=== PATIENT | male | born 1950 | race Caucasian/White ===

== ENCOUNTER 2018-08-13 08:07 | Outpatient (CLI) | payer BC, MEDICARE ==
--- NOTE | 2018-08-13 08:31 | RAD ---
EXAM: Chest Two Views 08/13/2018 8:28 AM HISTORY: Dyspnea COMPARISON: June 02, 2016 FINDINGS: Heart: Normal in size and contour. Pulmonary vessels: Normal. Costophrenic angles: Clear. Lungs: No confluent pneumonia, overt edema, pleural effusion, or other acute process. Pneumothorax: None. Osseous structures:Intact. There is scattered degenerative and osteoarthritic change present. There i s partial visualization of instrumentation involving the proximal right humerus. Additional findings: None. IMPRESSION: No significant acute intrathoracic disease.
== END 2018-08-13 08:08 | disposition home or self-care (01) ==
LOC: RAD 08:07
PROVIDERS: ATTEND Internal Medicine Critical Care Medicine
DX: R06.00 Dyspnea, unspecified (principal)
CPT/HCPCS: 71046

== ENCOUNTER 2018-09-07 10:17 | Outpatient (CLI) | payer BC, MEDICARE ==
--- NOTE | 2018-09-07 11:23 | RAD ---
EXAM: Two views chest PROVIDED CLINICAL HISTORY: Acute pulmonary embolism. DVT. Chest x-ray provided for correlation with ventilation/perfusion study. COMPARISON: 06/02/2016 FINDINGS: Cardiac silhouette and pulmonary vasculature are within normal limits. The lungs are clear. Degenera tive changes are again seen in the thoracic spine with calcification of the anterior longitudinal ligament. There is partial visualization of postsurgical changes proximal right humerus. [place] screw again overlies the left humeral head. Vascular calcifications are seen in the thoracic aorta. IMPRESSION: No acute cardiopulmonary process.
--- NOTE | 2018-09-07 12:06 | NM ---
EXAM: NM Lung Vent Perf Imaging PROVIDED CLINICAL HISTORY: Acute embolism and thrombus unspecified deep vein unspecified lower extremity. COMPARISON: Chest x-ray also obtained on 09/07/2018. FINDINGS: There is a small subsegmental ventilation defect seen at the left lung base. Normal uptake of radiotr acer is otherwise seen throughout the lungs on the ventilation portion of the study with mild retention of contrast seen in the left lung on washout imaging suggesting an element of COPD. The perfusion study demonstrates a small subsegmental defect seen within the left lower lobe which co rresponds to the defect noted on the ventilation portion of the study compatible with a matched defect. No additional segmental or subsegmental perfusion defect is identified. No ventilation/perfus ion mismatch is seen. The chest x-ray also obtained on this date demonstrates that the lungs are clear. IMPRESION: 1. Low probability for pulmonary embolus. 2. Suggestion of element of mild COPD.
== END 2018-09-07 10:18 | disposition home or self-care (01) ==
LOC: NM 10:17
PROVIDERS: ATTEND Internal Medicine Critical Care Medicine
DX: I82.409 Acute embolism and thrombosis of unspecified deep veins of unspecified lower extremity (principal)
CPT/HCPCS: 71046; 78582; A9540; A9558

== ENCOUNTER 2018-09-21 16:00 | Outpatient (CLI) | payer BC, MEDICARE | END 2018-09-21 16:01 | disposition home or self-care (01) | LOC: SLEEPLAB 16:00 | PROVIDERS: ATTEND Internal Medicine Critical Care Medicine | DX: G47.33 Obstructive sleep apnea (adult) (pediatric) (principal); I25.10 Atherosclerotic heart disease of native coronary artery without angina pectoris; I10 Essential (primary) hypertension; I21.9 Acute myocardial infarction, unspecified; R06.83 Snoring | CPT/HCPCS: 95806 ==

== ENCOUNTER 2019-09-11 20:09 | Inpatient (IN) | payer BC, MEDICARE, OTHER ==
[2019-09-11] MEDS ORDERED: Nitroglycerin 2% Ointment 1 INCH/1 GM Packet ONE (20:56)
[2019-09-11] MEDS ORDERED: hydrALAZINE 20 MG/ML VIAL ONE (20:56)
--- NOTE | 2019-09-11 21:04 | RAD ---
PORTABLE CHEST: 09/11/19 HISTORY: Cough. Lungs appear clear. No infiltrate identified. Heart and mediastinum unremarkable. IMPRESSION: No acute infiltrate identified. POS: AGW
[2019-09-11 21:38] LABS: Hemoglobin 15.1 g/dL (14.0-18.0); Mean Corpuscular Hemoglobin 30.3 pg (27.0-31.0); Mean Corpuscular Volume 91.9 fL (78.0-98.0); Platelet Count 163 thou/uL (130-400); RBC Distribution Width 13.1 % (11.5-14.5); Red Blood Cell (RBC) Count 4.97 mill/uL (4.70-6.10)
[2019-09-11 21:53] LABS: Band 15 % (5-11); Eosinophils 3 % (0-10); Lymphocytes 18 % (21-51); MDiff Complete? YES; Monocytes 10 % (0-10); Neutrophil 54 % (42-75); Platelet Morphology Comment Appears Adequate
[2019-09-11 21:56] LABS: ALT (SGPT) 40 U/L (8-55); AST (SGOT) 34 U/L (5-34); Albumin 3.8 g/dL (3.4-4.8); Alkaline Phosphatase 91 U/L (40-110); Anion Gap 14 mmol/L (10-20); BUN (Urea Nitrogen) 12 mg/dL (8.4-25.7); Bilirubin, Total 0.4 mg/dL (0.2-1.2); Calc. Creatinine Clearance 0 mL/min (70-130); Calcium 9.3 mg/dL (7.8-10.44); Carbon Dioxide 21 mmol/L (23-31); Chloride 103 mmol/L (98-107); Estimated GFR-MDRD 67; Globulin 3.3 g/dL (2.4-3.5); Glucose 123 mg/dL (80-115); Potassium 4.1 mmol/L (3.5-5.1); Protein, Total 7.1 g/dL (5.8-8.1); Sodium 134 mmol/L (136-145)
[2019-09-11 22:09] LABS: CKMB 1.3 ng/mL (0-6.6)
[2019-09-11] MEDS ORDERED: Metoprolol Tartrate 5 MG/5 ML VIAL ONE (22:17)
[2019-09-11] MEDS ORDERED: Aspirin 325 MG TAB ONE (22:19)
--- NOTE | 2019-09-11 22:53 | CT ---
CT Brain WO Con: 09/11/2019 10:25 PM CLINICAL HISTORY: History of dizziness and fall. IMAGING TECHNIQUE: Multiple CT images were obtained of the brain without IV contrast. COMPARISON: CT the brain from [facility] dated April 30, 2018. FINDINGS: BRAIN: Evidence of acute infarct: None. Evidence of chronic ischemic change:Mild chronic small vessel white matter ischemic changes similar. Remote right caudate head lacunar infarct is stable. Evidence of intracranial hemorrhage: None. Evidence of midline shift: Third ventricle and septum pellucidum are midline. Ventricles: Normal. No hydrocephalus. SKULL: Intact. VISUALIZED PARANASAL SINUSES: Clear. MASTOID AIR CELLS: Clear. EXTRACRANIAL SOFT TISSUES: Normal. IMPRESSION: No acute intracranial abnormality.
[2019-09-11 23:44] LABS: Troponin I 0.062 ng/mL (< 0.028)
[2019-09-12 00:16] VITALS: BMI 37.5
[2019-09-12] MEDS ORDERED: hydrALAZINE 20 MG/ML VIAL SLOW IVP PRN (00:17)
[2019-09-12 02:21] LABS: Troponin I 0.063 ng/mL (< 0.028)
[2019-09-12] MEDS: Acetaminophen 325 MG TAB PO PRN (04:12)
[2019-09-12] MEDS ORDERED: Labetalol HCl 100 MG/20 ML VIAL SLOW IVP PRN (05:06)
[2019-09-12] MEDS ORDERED: cloNIDine 0.1 MG TAB PO PRN (05:06)
[2019-09-12] MEDS ORDERED: Morphine 2 MG/ML SYRINGE SLOW IVP PRN (05:06)
[2019-09-12] MEDS ORDERED: Promethazine HCl 12.5 MG in Sodium Chloride 0.9% 50 ML IVPB PRN (05:06)
[2019-09-12] MEDS ORDERED: Acetaminophen 325 MG TAB PO PRN (05:06)
[2019-09-12] MEDS ORDERED: Ondansetron PF 4 MG/2 ML Vial IVP PRN (05:06)
[2019-09-12] MEDS ORDERED: HYDROcodone/Acetaminophen 5/325 mg Tablet PO PRN (05:06)
--- NOTE | 2019-09-12 05:08 | PDOC.HHP ---
Hospitalist HPI - History of Present Illness Dizziness, syncope History of Present Illness: Patient is a 68 year old male with PMH T2DM, HTN, HLD, CAD w/ stents who presents to ED for dizziness, syncope today. Patient reports got out of chair and had syncopal episode holding on to gun safe. He went to his PCP today and had high BP, so losartan was increased, however did not improve. Deneis shortness of breath, chest pain, nausea, vomiting. No known fever until he got here. Temperature here 100.2, reported as 102 by EMS. vital signs with out of control HTN w/ systolic to 200. TnI 0.05. patient swabbed for covid, admitted for rule out covid and syncope w fever and mild tni elevation. EKG in ED: 73 bpm, sinus, NC 202, no acute ST changes Hospitalist ROS - Medication Medications: Active Medications Generic Name Dose Route Start Last Admin Trade Name Freq PRN Reason Stop Dose Admin Acetaminophen 650 mg 09/12/19 03:27 09/12/19 04:12 Tylenol PO 650 mg Q4H PRN Administration Headache/Fever or Pain aspirin oral Sat Sep 11, 2019 20:33 MARCOS Fox Jessica tablet : Strength - 81 mg : ORAL Patient Dose: 81 mg Oral once a day. metFORMIN FriSep 11, 2019 20:34 MARCOS Fox Jessica tablet : Strength - 500 mg : ORAL Patient Dose: 2 tab(s) Oral 2 times a day. warfarin FriSep 11, 2019 20:34 MARCOS Fox Jessica tablet : Strength - 5 mg : ORAL Patient Dose: 2 tab(s) Oral once a day. tamsulosin Sat Sep 11, 2019 20:35 MARCOS Fox Jessica capsule : Strength - 0.4 mg : ORAL Patient Dose: 1 cap(s) Oral once a day. gabapentin FriSep 11, 2019 20:35 MARCOS Fox Jessica capsule : Strength - 300 mg : ORAL Patient Dose: 1 cap(s) Oral once a day. buPROPion HCl FriSep 11, 2019 20:36 MARCOS Fox Jessica tablet : Strength - 75 mg : ORAL Patient Dose: 1 tab(s) Oral once a day. pantoprazole oral Sat Sep 11, 2019 20:36 MARCOS Fox Jessica tablet,delayed release (DR/EC) : Strength - 40 mg : ORAL Patient Dose: 40 mg Oral once a day. carvedilol Sat Sep 11, 2019 20:36 MARCOS Fox, Whit tablet : Strength - 12.5 mg : ORAL Patient Dose: 12.5 mg Oral once a day. loratadine Sat Sep 11, 2019 20:37 MARCOS Fox, Whit capsule : Strength - 10 mg : ORAL Patient Dose: 10 mg Oral once a day. Hospitalist History - Past Medical History Other Medical History: T2DM, HTN, HLD, CAD w/ stents - Past Surgical History Other Surgical History: appendectomy orthopedic surgery R shoudler, bilateral knee - Family History Family History: reports: no pertinent history - Social History Alcohol: reports: Rare - Exam General Appearance: NAD, awake alert Eye: PERRL, anicteric sclera ENT: normocephalic atraumatic, no oropharyngeal lesions, moist mucosa Neck: supple, symmetric, no JVD, no thyromegaly, no lymphadenopathy, no carotid bruit Heart: RRR, no murmur, no gallops, no rubs, normal peripheral pulses Respiratory: CTAB, no wheezes, no rales, no ronchi, normal chest expansion, no tachypnea, normal percussion Gastrointestinal: soft, non-tender, non-distended, normal bowel sounds, no palpable masses, no hepatomegaly, no splenomegaly, no bruit Extremities: no cyanosis, no clubbing, no edema Skin: normal turgor, no lesions, no rashes Neurological: cranial nerve grossly intact, normal sensation to touch, no weakness, no focal deficits, no new deficit Musculoskeletal: normal tone, normal strength, no muscle wasting Psychiatric: normal affect, normal behavior, A&O x 3 Hospitalist Results - Labs Result Diagrams: 09/11/19 20:53 09/11/19 20:53 Lab results: WBC 5.0 thou/uL (4.8-10.8) 09/11/19 20:53 Hgb 15.1 g/dL (14.0-18.0) 09/11/19 20:53 Hct 45.7 % (42.0-52.0) 09/11/19 20:53 MCV 91.9 fL (78.0-98.0) 09/11/19 20:53 Plt Count 163 thou/uL (130-400) 09/11/19 20:53 Band Neuts % (Manual) 15 % (5-11) H 09/11/19 20:53 Sodium 134 mmol/L (136-145) L 09/11/19 20:53 Potassium 4.1 mmol/L (3.5-5.1) 09/11/19 20:53 Chloride 103 mmol/L (98-107) 09/11/19 20:53 Carbon Dioxide 21 mmol/L (23-31) L 09/11/19 20:53 BUN 12 mg/dL (8.4-25.7) 09/11/19 20:53 Creatinine 1.10 mg/dL (0.7-1.3) 09/11/19 20:53 Glucose 123 mg/dL (80-115) H 09/11/19 20:53 Calcium 9.3 mg/dL (7.8-10.44) 09/11/19 20:53 Total Bilirubin 0.4 mg/dL (0.2-1.2) 09/11/19 20:53 AST 34 U/L (5-34) 09/11/19 20:53 ALT 40 U/L (8-55) 09/11/19 20:53 Alkaline Phosphatase 91 U/L (40-110) 09/11/19 20:53 CK-MB (CK-2) 1.3 ng/mL (0-6.6) 09/11/19 20:53 Troponin I 0.063 ng/mL (< 0.028) H 09/12/19 01:41 B-Natriuretic Peptide 79.5 pg/mL (0-100) 09/11/19 20:53 Serum Total Protein 7.1 g/dL (5.8-8.1) 09/11/19 20:53 Albumin 3.8 g/dL (3.4-4.8) 09/11/19 20:53 Additional comment: VITAL SIGNS Sat Sep 11, 2019 22:28 MARCOS Fox Jessica BP: 199/100 MAP: 133 Pulse: 87 Resp: 20 Temp: 99.6 (Oral) Pain: 0 O2 sat: 97 on (Room Air) Time: 09/11/2019 22:28. VITAL SIGNS Sat Sep 11, 2019 23:45 MARCOS Fox Jessica BP: 159/71 Pulse: 85 Resp: 18 Pain: 0 O2 sat: 97 on (Room Air) Time: 09/11/2019 23:45. - EKG Interpretation EKG: reivewed by me, see HPI for read. Hospitalist H&P A/P - Plan Plan: Patient is a 68 year old male with PMH T2DM, HTN, HLD, CAD w/ stents who presents to ED for dizziness, syncope today. # syncope # elevated troponin # T2DM # HLD # CAD w/ stents # fever - admit to telemetry - orthostatics, echo - IVF - covid swab rule out - continue warfarin, pharmacy to dose - monitor off of abx while ruling out infection DVT ppx - warfarin GI ppx Code: full
[2019-09-12] MEDS ORDERED: Dextrose 5% in Water 1,000 ML IV PRN (05:10)
[2019-09-12] MEDS ORDERED: Dextrose 50% Abboject 50 ML SYRINGE SLOW IVP PRN (05:10)
[2019-09-12] MEDS ORDERED: HumaLOG 300 UNITS/3 ML VIAL SC PRN (05:10)
[2019-09-12] MEDS: Sodium Chloride 0.9% 1,000 ML IV SCH ×2 (05:22→18:15)
[2019-09-12 05:43] LABS: INR-International Normal Ratio 3.1; Prothrombin Time 31.5 sec (12.0-14.7)
[2019-09-12] MEDS ORDERED: Nitroglycerin 2% Ointment 1 INCH/1 GM Packet TOP SCH (06:00)
[2019-09-12 06:07] LABS: Troponin I 0.067 ng/mL (< 0.028)
[2019-09-12] MEDS: Aspirin 81 mg Enteric Coated Tablet PO SCH (07:19)
[2019-09-12] MEDS: Tamsulosin HCl 0.4 MG CAP PO SCH (07:19)
[2019-09-12] MEDS: Carvedilol 6.25 MG TAB PO SCH (07:19)
[2019-09-12] MEDS: Polyethylene Glycol 3350 17 GM Packet PO SCH ×2 (07:20→08:47)
[2019-09-12] MEDS: buPROPion 75 MG TAB PO SCH ×2 (07:24→21:18)
[2019-09-12] MEDS: Famotidine 20 MG TAB PO SCH ×2 (07:56→21:17)
[2019-09-12] MEDS ORDERED: Losartan 25 MG TAB PO SCH (09:00)
[2019-09-12] MEDS ORDERED: Enoxaparin Sodium 40 MG/0.4 ML SYRINGE SC SCH (09:00)
[2019-09-12] MEDS ORDERED: Prevnar 13-Val Conj/PF 0.5 ML SYRINGE IM ONE (09:00)
[2019-09-12 09:41] LABS: Hemoglobin 14.3 g/dL (14.0-18.0); Platelet Count 147 thou/uL (130-400)
--- NOTE | 2019-09-12 10:28 | EKG ---
Test Reason : Blood Pressure : / mmHG Vent. Rate : 073 BPM Atrial Rate : 073 BPM P-R Int : 202 ms QRS Dur : 104 ms QT Int : 366 ms P-R-T Axes : 000 -23 052 degrees QTc Int : 403 ms Normal sinus rhythm Moderate voltage criteria for LVH, may be normal variant Borderline ECG Confirmed by BRENNA LEYVA, ENOCH Avalos ([id number]), story editor MITCH ALLEN ([id number]) on 09/12/2019 10:28:43 AM Referred By: Confirmed By:ENOCH CEJA MD
[2019-09-12 11:03] LABS: Bilirubin Negative (Negative); Blood, Urine Trace (Negative); Clarity Clear (Clear); Glucose, Urine (Dipstick) Normal (Negative); Leukocyte Negative Leu/uL (Negative); Mucous/LPF Rare LPF (<2+); Nitrite Negative (Negative); Protein, Urine (Dipstick) 50 mg/dL (Neg-Trace); RBC/HPF 0-3 HPF (0-3); Squamous Epithelial None Seen HPF (0-3); Urobilinogen Normal mg/dL (Less than 2); WBC/HPF 0-3 HPF (0-3)
[2019-09-12 11:04] LABS: Bacteria/HPF Rare-Few HPF (None Seen)
[2019-09-12 11:05] LABS: Urine Culture Reflex No No
[2019-09-12 11:59] LABS: Troponin I 0.052 ng/mL (< 0.028)
[2019-09-12 15:06] LABS: SARS-CoV-2 MS2 Positive; SARS-CoV-2 N Gene Positive; SARS-CoV-2 S Gene Positive; SARS-CoV-2 orf1ab Positive
[2019-09-12] MEDS: Warfarin Sodium 10 MG TAB PO SCH (16:04)
[2019-09-12] MEDS: hydrALAZINE 20 MG/ML VIAL SLOW IVP PRN (17:42)
[2019-09-12 18:33] LABS: Troponin I 0.058 ng/mL (< 0.028)
[2019-09-12] MEDS: Gabapentin 300 MG CAP PO SCH (21:18)
[2019-09-12] MEDS: Losartan 25 MG TAB PO SCH (21:18)
[2019-09-12] MEDS: Guaifenesin DM 100-10/5 ML UDCUP PO PRN (21:37)
[2019-09-13] MEDS: Acetaminophen 325 MG TAB PO PRN (00:40)
[2019-09-13] MEDS: hydrALAZINE 20 MG/ML VIAL SLOW IVP PRN (00:41)
[2019-09-13 04:33] LABS: INR-International Normal Ratio 2.1; Prothrombin Time 23.7 sec (12.0-14.7)
[2019-09-13 04:54] LABS: Anion Gap 11 mmol/L (10-20); BUN (Urea Nitrogen) 11 mg/dL (8.4-25.7); Calc. Creatinine Clearance 139 mL/min (70-130); Calcium 8.4 mg/dL (7.8-10.44); Carbon Dioxide 24 mmol/L (23-31); Chloride 105 mmol/L (98-107); Estimated GFR-MDRD 77; Glucose 153 mg/dL (80-115); Magnesium 2.1 mg/dL (1.6-2.6); Potassium 3.6 mmol/L (3.5-5.1); Sodium 136 mmol/L (136-145)
[2019-09-13 05:10] LABS: Band 1 % (5-11); Hemoglobin 14.9 g/dL (14.0-18.0); Lymphocytes 33 % (21-51); MDiff Complete? YES; Mean Corpuscular Hemoglobin 30.2 pg (27.0-31.0); Mean Corpuscular Volume 91.5 fL (78.0-98.0); Monocytes 4 % (0-10); Neutrophil 62 % (42-75); Platelet Count 138 thou/uL (130-400); Platelet Morphology Comment Appears Adequate; RBC Distribution Width 13.4 % (11.5-14.5); RBC Morphology Normal; Red Blood Cell (RBC) Count 4.92 mill/uL (4.70-6.10); White Blood Cell (WBC) Count 5.9 thou/uL (4.8-10.8)
[2019-09-13] MEDS: Sodium Chloride 0.9% 1,000 ML IV SCH (07:57)
[2019-09-13] MEDS: Tamsulosin HCl 0.4 MG CAP PO SCH (07:58)
[2019-09-13] MEDS: Losartan 25 MG TAB PO SCH ×2 (07:58→19:59)
[2019-09-13] MEDS: Carvedilol 6.25 MG TAB PO SCH (07:59)
[2019-09-13] MEDS: Aspirin 81 mg Enteric Coated Tablet PO SCH (07:59)
[2019-09-13] MEDS: buPROPion 75 MG TAB PO SCH ×2 (07:59→19:59)
[2019-09-13] MEDS: Polyethylene Glycol 3350 17 GM Packet PO SCH (08:30)
[2019-09-13] MEDS: Famotidine 20 MG TAB PO SCH ×2 (12:25→19:59)
--- NOTE | 2019-09-13 14:54 | CON ---
DATE OF CONSULTATION: 09/13/2019 REASON FOR CONSULTATION: COVID infection. HISTORY OF PRESENT ILLNESS: A 68-year-old with a history of coronary artery disease with prior stents, hypertension, obesity, and type 2 diabetes, who was feeling kind of dizzy on Friday, , and Friday last week, this is about 4 days before admission, and on Friday, he had some cough and fever and chills and felt weak, so he came to the hospital, was admitted, had a positive COVID test. Right now, he is feeling great. His strength has returned. He is not coughing anymore, barely coughing. No dyspnea. No headaches. No chest pain, abdominal pain, or diarrhea. No genitourinary symptoms. PAST MEDICAL HISTORY: Includes: 1. Type 2 diabetes. 2. Hyperlipidemia. 3. Two stents. 4. Hypertension. 5. Appendectomy. 6. Shoulder surgery. 7. Bilateral knee replacements. ALLERGIES: NONE. FAMILY HISTORY: Noncontributory. 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 He drinks occasionally. Never smoker. He is single or . CURRENT MEDICATIONS: 1. DuoNeb. 2. Landrum. 3. Ecotrin. 4. Wellbutrin. 5. Coreg. 6. Catapres. 7. Pepcid. 8. Neurontin. 9. Insulin. 10. Normodyne. 11. Cozaar. 12. Zofran. 13. MiraLAX. 14. Promethazine. 15. Warfarin. PHYSICAL EXAMINATION: VITAL SIGNS: He had a temperature of 100.9 and now is 97.7. Other vital signs are normal. He had a quite a bit of elevation of his systolic blood pressure when he came in. He is on room air and is saturating at 97%. GENERAL: He appears in no distress, oriented, follows commands. SKIN: Normal. There is no lymphadenopathy. HEENT: Unremarkable. NECK: Supple. LUNGS: Symmetric. Clear breath sounds. HEART: S1 and S2. Regular rate. No S3 or S4. ABDOMEN: Soft, not distended or tender. No ascites. No bladder distention. EXTREMITIES: No joint inflammatory activity. Moves extremities equally. NEUROLOGIC: Cognitive function is normal. LABORATORY DATA: CBC with a white cell count 5.0, hemoglobin normal, 15% bands when he came in and now it is normal. The D-dimer was not measured. His ferritin was not measured. Urinalysis was normal. COVID was positive. Chest x-ray, no acute infiltrates. ASSESSMENT: 1. Type 2 diabetes. 2. Coronary artery disease with prior stents. 3. Hypertension. 4. COVID infection. DISCUSSION: The patient seems to have a relatively mild course of illness thus far and is not requiring oxygen and is feeling actually better compared with yesterday, so I do not think he would merit any intervention at this point, and in other words, no antiviral or anti-inflammatory treatment and I would consider discharge planning and giving him instructions as to potential clinical deterioration in the ensuing days, which may happen, usually develops by the round the 11th days approximately, so right now this is the 5th or 6th day of illness, but I think he is trending towards improvement rather than the deterioration at this point in time. Job ID: [id number]
[2019-09-13] MEDS: Guaifenesin DM 100-10/5 ML UDCUP PO PRN (17:46)
[2019-09-13] MEDS: Warfarin Sodium 10 MG TAB PO SCH (17:47)
[2019-09-13] MEDS: Gabapentin 300 MG CAP PO SCH (19:59)
[2019-09-13 20:10] VITALS: BP 198/86; TEMP 98.1
--- NOTE | 2019-09-14 12:42 | DIS ---
DATE OF ADMISSION: 09/11/2019 DATE OF DISCHARGE: 09/13/2019 DISCHARGE DISPOSITION: Home. FOLLOWUP: 1. Follow up with primary care physician, Dr. Murali Adams in 1 week. 2. Follow up with Dr. Best and Infectious Disease in 1 to 2 weeks. ALLERGIES: NO KNOWN DRUG ALLERGIES. DISCHARGE MEDICATIONS: Same as admission medication. The patient was advised to monitor blood pressure and to reduce the dose of losartan and carvedilol if his blood pressures are on the lower side. Fall precaution was emphasized. BRIEF HOSPITAL COURSE: The patient is a 68-year-old male with coronary artery disease, hypertension, and diabetes mellitus type 2, presented to the hospital with dizziness and a syncopal episode. He was found to have a temperature of 102 by EMS along with elevated blood pressure. He was monitored on the telemetry unit. He was found to have orthostatic hypotension as well. The patient was evaluated by Infectious Disease, Dr. Suazo, who recommended outpatient followup. The patient was instructed that his symptoms can potentially get worse over the next few weeks. He was advised to seek medical attention if he develops any new symptoms. He was advised to monitor his blood pressure on a daily basis. I also discussed the case with Dr. Alfred, who agrees with the above plan of care. Dr. Alfred recommended the patient to follow up with Dr. Best. Fall precaution was emphasized. The patient understands the above plan of care. FINAL DIAGNOSES: 1. Syncope secondary to orthostatic hypotension. 2. COVID-19 infection. 3. Diabetes mellitus type 2. 4. Coronary artery disease, status post stent. 5. Hypertension. 6. Chronic kidney disease stage 2. 7. Mild hyponatremia. 8. Chronic anticoagulation. Please note that the patient's condition significantly improved earlier than anticipated. Job ID: [id number] MTDD
== END 2019-09-13 20:46 | disposition home or self-care (01) | DRG 178 ==
LOC: ERS 20:09 → 2SW 23:58
PROVIDERS: ADMIT Internal Medicine; ATTEND Internal Medicine
PROC: 8E0ZXY6 Isolation (ICD-10-PCS; principal; 2019-09-11)
DX: U07.1 COVID-19 (principal); E87.1 Hypo-osmolality and hyponatremia; I16.1 Hypertensive emergency; I95.1 Orthostatic hypotension; I25.10 Atherosclerotic heart disease of native coronary artery without angina pectoris; E78.5 Hyperlipidemia, unspecified; I12.9 Hypertensive chronic kidney disease with stage 1 through stage 4 chronic kidney disease, or unspecified chronic kidney disease; E78.00 Pure hypercholesterolemia, unspecified; E11.22 Type 2 diabetes mellitus with diabetic chronic kidney disease; N18.2 Chronic kidney disease, stage 2 (mild); Z96.612 Presence of left artificial shoulder joint; Z96.611 Presence of right artificial shoulder joint; Z90.49 Acquired absence of other specified parts of digestive tract; Z95.5 Presence of coronary angioplasty implant and graft; Z79.01 Long term (current) use of anticoagulants
CPT/HCPCS: 36415; 36416; 36600; 70450; 71045; 80048; 80053; 81001; 82553; 83735; 83880; 84484; 85014; 85018; 85025; 85049; 85610; 87635; 90471; 90670; 93005; 96374; 96375; 96376; G0009; J0360; U0003

== ENCOUNTER 2019-09-21 13:36 | Observation (INO) | payer BC, MEDICARE, OTHER ==
[2019-09-21 14:34] LABS: #Lymphocytes 2.3 thou/uL (1.20-3.40); #Monocytes 0.7 thou/uL (0.11-0.59); #Neutrophils 5.2 thou/uL (1.40-6.50); %Basophils 0.1 % (0.0-1.0); %Eosinophils 0.4 % (0.0-10.0); %Lymphocytes 27.4 % (21.0-51.0); %Monocytes 8.9 % (0.0-10.0); %Neutrophils 63.2 % (42.0-75.0); Hemoglobin 14.5 g/dL (14.0-18.0); Mean Corpuscular HGB CONC 32.5 g/dL (32.0-36.0); Mean Corpuscular Hemoglobin 29.6 pg (27.0-31.0); Mean Platelet Volume 8.7 fL (7.4-10.4); Platelet Count 195 thou/uL (130-400); RBC Distribution Width 13.4 % (11.5-14.5); Red Blood Cell (RBC) Count 4.89 mill/uL (4.70-6.10); White Blood Cell (WBC) Count 8.3 thou/uL (4.8-10.8)
--- NOTE | 2019-09-21 14:39 | RAD ---
PORTABLE CHEST: 09/21/19 HISTORY: Positive COVID, weakness and low blood pressure. COMPARISON: 09/11/19 exam. Heart size is within normal limits for portable technique. The aorta is mildly tortuous. The lungs ap pear clear of any infiltrative process. IMPRESSION: No focal infiltrates. POS: AH
[2019-09-21 14:55] LABS: ALT (SGPT) 28 U/L (8-55); AST (SGOT) 24 U/L (5-34); Albumin 3.5 g/dL (3.4-4.8); Alkaline Phosphatase 78 U/L (40-110); Anion Gap 11 mmol/L (10-20); BUN (Urea Nitrogen) 16 mg/dL (8.4-25.7); Bilirubin, Total 0.6 mg/dL (0.2-1.2); Calc. Creatinine Clearance 0 mL/min (70-130); Calcium 8.5 mg/dL (7.8-10.44); Carbon Dioxide 24 mmol/L (23-31); Chloride 102 mmol/L (98-107); Estimated GFR-MDRD 51; Globulin 2.8 g/dL (2.4-3.5); Glucose 245 mg/dL (80-115); Potassium 4.2 mmol/L (3.5-5.1); Protein, Total 6.3 g/dL (5.8-8.1); Sodium 133 mmol/L (136-145)
[2019-09-21 15:24] LABS: CKMB 0.7 ng/mL (0-6.6)
[2019-09-21] MEDS ORDERED: Aspirin 325 MG TAB ONE (16:21)
[2019-09-21] MEDS ORDERED: Calcium Carbonate 500 MG ChewTAB PO PRN (16:55)
[2019-09-21] MEDS ORDERED: Ondansetron ODT 4 MG TAB PO PRN (16:55)
[2019-09-21] MEDS ORDERED: Senokot S 8.6-50 MG TAB PO PRN (16:55)
[2019-09-21] MEDS ORDERED: HumaLOG 300 UNITS/3 ML VIAL SC PRN ×2 (16:55)
[2019-09-21] MEDS ORDERED: Dextrose 50% Abboject 50 ML SYRINGE SLOW IVP PRN (16:55)
[2019-09-21] MEDS ORDERED: Acetaminophen 325 MG TAB PO PRN (16:55)
[2019-09-21] MEDS ORDERED: Dextrose 5% in Water 1,000 ML IV PRN (16:55)
[2019-09-21 17:37] VITALS: BMI 36.8
--- NOTE | 2019-09-21 17:44 | HP ---
PRIMARY CARE PHYSICIAN: Dr. Murali Henderson. CHIEF COMPLAINT: General weakness. HISTORY OF PRESENT ILLNESS: The patient is a 68-year-old male with past medical history significant for coronary artery disease, x6 stents; diabetes, type 2, noninsulin dependent; hypertension; hyperlipidemia, who presents to the ER for the above complaint. The patient was recently discharged from our hospital on for a syncopal episode with hypertensive urgency. The patient was also found to be COVID positive at that time. Since discharge, the patient reports that he has been generally weak with a decreased oral intake. He is drinking fluids, but has very little solid intake for the past week and a half. The patient denies any recent fever or chills. Denies any chest pain, heart palpitations, or lower extremity swelling. Denies any shortness of breath or cough. Denies any abdominal pain, nausea, vomiting, or diarrhea. Denies any dysuria. Due to the general weakness, EMS was called. When EMS showed up at the scene, his vital signs were normal; normal blood pressure, normal pulse, normal respirations, afebrile. However, when he was transferred to the [facility], he became hypotensive. In the ER, the patient had an EKG with sinus rhythm at 63 beats per minutes with a first-degree AV block. Chest x-ray was negative for any acute process. Initial troponin 0.042, BNP of 24.4, and CK-MB of 0.7. The patient had mild DANY with a creatinine of 1.38. His white count was 8.3. He was given 1 L of normal saline and aspirin. His blood pressure improved to 111/69 and the patient reports that his symptoms improved. PAST MEDICAL HISTORY: 1. Coronary artery disease, x6 stents. 2. Diabetes 2. 3. Peripheral neuropathy. 4. Hyperlipidemia. 5. Hypertension. 6. Depression. 7. GERD. SURGICAL HISTORY: 1. Appendectomy. 2. Right shoulder surgery. 3. Bilateral knee surgery. 4. Cardiac cath 3 weeks ago. SOCIAL HISTORY: The patient lives in [place] alone. He drinks alcohol socially. He has no smoking history. No illicit drug use. 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 He ambulates without any assistive devices. FAMILY HISTORY: Noncontributory to this case. ALLERGIES: NO KNOWN DRUG ALLERGIES. HOME MEDICATIONS: 1. Aspirin 81 mg p.o. daily. 2. Warfarin 10 mg p.o. daily. 3. Carvedilol 12.5 mg p.o. b.i.d. 4. Pantoprazole 40 mg p.o. daily. 5. Metformin 1000 mg p.o. b.i.d. 6. Gabapentin 300 mg p.o. daily. 7. Bupropion 75 mg p.o. daily. REVIEW OF SYSTEMS: All review of systems are negative unless otherwise stated in the HPI. PHYSICAL EXAMINATION: VITAL SIGNS: Temperature 98.4, blood pressure 111/69, heart rate 64, respirations 16, 97% on room air, and 0 to 10 pain. CONSTITUTIONAL: The patient is alert and oriented to person, place, and time. Appears uncomfortable, but nontoxic in appearance. HEAD: Atraumatic and normocephalic. EYES: PERRLA. Extraocular muscles intact. Sclerae nonicteric. ENT: TMs intact bilaterally. EACs clear bilaterally. Nares patent bilaterally. Oropharynx is clear. Uvula midline. Tacky mucous membranes. No oral lesions. NECK: Supple. Trachea midline. No JVD. No cervical adenopathy. No cervical spinous tenderness. Full range of motion. RESPIRATORY/CHEST: Respirations are even and nonlabored. Clear to auscultation. No rhonchi, wheezes, or rales. CARDIOVASCULAR: S1 and S2 appreciated. No murmurs, rubs, or gallops. ABDOMEN: Soft, nontender, mildly distended. Active bowel sounds. No rebound. No guarding. No rigidity. Negative Rovsing sign. Negative Espinoza sign. BACK: Full range of motion. No central spinous tenderness. No CVA tenderness. EXTREMITIES: Bilateral upper extremities; full range of motion, strength normal , sensation intact, palpable radial pulses. Lower extremities; full range of motion, strength normal, sensation intact, palpable pedal pulses, no swelling. NEUROLOGIC: The patient is alert and oriented to person, place, and time. Moving all extremities. No focal deficits. Normal gait. PSYCHIATRIC: Normal affect. The patient is A and O x3. LABORATORY AND DIAGNOSTIC STUDIES: EKG, sinus rhythm at 63 beats per minutes, first-degree AV block, no ST elevations. Chest x-ray negative for any acute process. Troponin 0.042, BNP 24.4, and CK-MB 0.7. Sodium 133, potassium 4.2, chloride 102, CO2 of 24, BUN 16, creatinine 1.38, and glucose 245. Total bilirubin 0.6, AST 24, ALT 28, alkaline phosphatase 78, and albumin 3.5. WBCs 8.3, hemoglobin 14.5, hematocrit 44.5, and platelets 195. IMPRESSION AND PLAN: 1. Dehydration and mild acute kidney injury. We will admit the patient to telemetry for observation status. Expected length of stay less than 2 midnights. The patient presented with a creatinine of 1.38 and a BUN of 16. He had orthostatic hypotension with EMS. He was given 1 L of normal saline in the ER and his symptoms have improved. The patient has history of coronary artery disease, had a catheterization 3 weeks ago and an echo that he reports as normal by Dr. Best. We will continue to give IV fluid resuscitation. We will continue aspirin. We will recheck levels in the a.m. We request records from [facility]. 2. COVID-19. The patient was diagnosed with COVID-19 as previous hospital admission, which he was discharged on 09/12. The patient denies any shortness of breath or chest pain. Vital signs are currently stable at this time. We will place the patient on droplet precautions. We will give supplemental support as needed. 3. Diabetes, type 2. The patient is on metformin. We will hold for now. We will start the patient on moderate sliding scale and Accu-Cheks a.c. and at bedtime. 4. Hypertension. The patient presented with regular blood pressure; however, he is orthostatic. He reports that he has had decreased oral intake over the last week to week and a half. We will restart the patient's home medications as blood pressure allows. We will continue to monitor blood pressure. 5. Coronary artery disease, x6 stents. The patient had recent cardiac cath [address] Best, reports that the echo and the catheterization were normal. No interventions. We will get the patient's PT/INR and we will start home dose of warfarin once reconciled by nursing. 6. Depression. The patient denies any suicidal or homicidal ideation. The patient takes bupropion on his home medication. We will restart when reconciled by nursing. 7. Acid reflux. The patient takes pantoprazole. We will restart home medication when reconciled by nursing. 8. No deep vein thrombosis prophylaxis. Protonix for gastrointestinal prophylaxis. The patient is a full code. His MPOA is his daughter, Lidia Mccray, [phone]. 9. Discussed the case with Dr. Flores. Job ID: [id number] MTDD
[2019-09-21] MEDS: Sodium Chloride 0.9% 1,000 ML IV SCH (17:50)
[2019-09-21 18:53] LABS: PTT 73.5 sec (22.9-36.1); Prothrombin Time 39.7 sec (12.0-14.7)
[2019-09-21 18:58] LABS: INR-International Normal Ratio 4.1
[2019-09-21] MEDS: Carvedilol 6.25 MG TAB PO SCH (20:57)
[2019-09-21] MEDS: buPROPion 75 MG TAB PO SCH (20:57)
[2019-09-21] MEDS ORDERED: Gabapentin 300 MG CAP PO SCH (21:00)
[2019-09-21 21:48] LABS: Troponin I 0.037 ng/mL (< 0.028)
[2019-09-21] MEDS ORDERED: Magnesium 2 GM/50 ML 2 GM in Premix Bag 1 BAG IVPB SCH (22:00)
[2019-09-22] MEDS: Sodium Chloride 0.9% 1,000 ML IV SCH ×3 (03:25→18:16)
[2019-09-22 06:37] LABS: #Lymphocytes 2.4 thou/uL (1.20-3.40); #Monocytes 0.7 thou/uL (0.11-0.59); #Neutrophils 5.7 thou/uL (1.40-6.50); %Basophils 0.3 % (0.0-1.0); %Eosinophils 0.3 % (0.0-10.0); %Lymphocytes 27.2 % (21.0-51.0); %Neutrophils 64.1 % (42.0-75.0); Hemoglobin 13.2 g/dL (14.0-18.0); Mean Corpuscular HGB CONC 33.2 g/dL (32.0-36.0); Mean Corpuscular Hemoglobin 30.2 pg (27.0-31.0); Mean Corpuscular Volume 90.9 fL (78.0-98.0); Mean Platelet Volume 8.3 fL (7.4-10.4); Platelet Count 186 thou/uL (130-400); RBC Distribution Width 13.5 % (11.5-14.5); Red Blood Cell (RBC) Count 4.39 mill/uL (4.70-6.10); White Blood Cell (WBC) Count 8.8 thou/uL (4.8-10.8)
[2019-09-22 06:39] LABS: Prothrombin Time 45.9 sec (12.0-14.7)
[2019-09-22 06:56] LABS: Anion Gap 12 mmol/L (10-20); BUN (Urea Nitrogen) 15 mg/dL (8.4-25.7); Calc. Creatinine Clearance 125 mL/min (70-130); Calcium 8.3 mg/dL (7.8-10.44); Carbon Dioxide 22 mmol/L (23-31); Chloride 106 mmol/L (98-107); Estimated GFR-MDRD 70; Glucose 177 mg/dL (80-115); Sodium 136 mmol/L (136-145)
[2019-09-22] MEDS ORDERED: Phytonadione 10 MG/ML AMP PO SCH (08:30)
[2019-09-22] MEDS ORDERED: Tamsulosin HCl 0.4 MG CAP PO SCH (09:00)
[2019-09-22] MEDS ORDERED: Loratadine 10 MG TAB PO SCH (09:00)
[2019-09-22] MEDS ORDERED: Aspirin 81 mg Enteric Coated Tablet PO SCH ×2 (09:00)
[2019-09-22] MEDS: Carvedilol 6.25 MG TAB PO SCH (10:01)
[2019-09-22] MEDS: buPROPion 75 MG TAB PO SCH (10:01)
[2019-09-22 15:20] VITALS: BP 175/84
--- NOTE | 2019-09-22 15:42 | CON ---
DATE OF CONSULTATION: 09/22/2019 HISTORY OF PRESENT ILLNESS: Mr. Petty unfortunately had to come back. He felt dizzy, little bit orthostatic. Did not have cough or dyspnea. Came to the emergency room today and initial findings, BP 111/69, pulse 64, respirations 16, temperature 98.4, O2 saturations were 97 on room air. The exam was not particularly remarkable. Other findings; white cell count 8.3, hemoglobin 14, platelets 195. Troponin 0.037. Potassium 4.0, creatinine 1.06, glucose 214, calcium 8.3. Liver profile normal. Troponin 0.042 and 0.040. Albumin 3.5. Pt was placed back in the obs unit. Currently feeling back to normal. No headaches, no visual symptoms, no sore- throat, no chest pain or dyspnea, no cough. No fever or chills. No abd pain or symptoms. No extremity symp toms. 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 Skin wnl, no lymphadenopathy EOMI, nl oral cavity Supple neck. Lungs with bilateral symmetric lung sounds, no crackles or wheezing S1S2 no S3, no murmurs Soft abd no organomegaly, no tenderness, nl BS Neuro exam non focal Pulses 1+ DP R/L No edema ASSESSMENT AND DISCUSSION: Type 2 diabetes, coronary artery disease, prior stents, hypertension, and COVID infection, mild. Now the patient returns with dizziness and hypotension reported, and I think his COVID infection has probably resolved. He does not have any infiltrates and I think that this is maybe cardiovascular in nature. The only concern would be with the possibility of thromboembolism because of the known association between COVID infection and thromboembolism. Might consider rechecking CT angio or duplex lower extrem. whenever kidney function improves. He does not need any measures for management of COVID at this time, which is a resolved problem. A cardiac event would be the other possibility in view of his antecedents. Job ID: [id number] [facility]
[2019-09-22 16:11] LABS: INR-International Normal Ratio 4.7
[2019-09-22 16:12] LABS: D-Dimer Test Less than 0.27 *mcg/mL (0.27-0.43)
[2019-09-22 17:02] VITALS: TEMP 99
--- NOTE | 2019-09-22 20:58 | DIS ---
DATE OF ADMISSION: 09/21/2019 DATE OF DISCHARGE: 09/22/2019 DISCHARGE DISPOSITION: Home. FOLLOWUP: 1. Follow up with primary care physician, Dr. Murali Adams in 2 to 3 days. 2. Follow up with Dr. Salvador Best in 2 to 3 days. PT/INR in one day's recommended. The patient was advised to follow up. The patient was seen on the day of discharge. Denies any new complaints. The patient denies any lightheadedness or dizziness. Orthostatic vitals were negative. DISCHARGE MEDICATIONS: Same as admission medication. The patient was advised to hold warfarin today and recheck INR tomorrow. He was also advised to change Flomax to at bedtime. INPATIENT ORACLE FINANCIAL APPLICATION DEVELOPER: Infectious Disease, Dr. Suazo. BRIEF HOSPITAL COURSE: The patient is a 68-year-old male with recent diagnosis of COVID-19, presented to the hospital with dizziness along with lightheadedness. The patient was evaluated by his PCP yesterday and was found to have elevated blood pressure. His losartan dose was increased. He also had low-grade temperature. Please refer to the history and physical for further details. The patient was admitted to the hospital with a diagnosis of generalized weakness along with lightheadedness. His orthostatic vitals were positive. He was monitored on the telemetry unit. After IV hydration, his orthostatic vitals improved. I discussed the case in detail with his primary ocular pathologist, Dr. Best. The patient had a negative cardiac catheterization recently per Dr. Best. He has issues with high blood pressure if his blood pressure medications discontinued. The patient probably has autonomic dysfunction from diabetes as well as Flomax may be contributing to orthostatic hypotension. Dr. Best recommended changing Flomax to at bedtime. He also received 1.25 mg of vitamin K earlier today for supratherapeutic INR of 5.0. His INR at the time of discharge is 4.7. He was advised to check INR tomorrow and adjust the dose of warfarin. He appears stable for discharge. The patient has been ambulating in the room without any lightheadedness or dizziness and is eager to go home. FINAL DIAGNOSES: 1. Syncope secondary to orthostatic hypotension, resolved. 2. COVID-19 infection. 3. Diabetes mellitus, type 2. 4. Coronary artery disease, status post stent. 5. Acute kidney injury on chronic kidney disease stage 2. 6. Hypertension. 7. Chronic anticoagulation with supratherapeutic INR. 8. Hyponatremia, resolved. 9. Obesity with a BMI of 36.8. Basic metabolic profile after 1 week is recommended. Primary care physician advised to follow. Fall precaution with 24-hour supervision was recommended. Job ID: [id number]
[2019-09-22] MEDS ORDERED: Niacin 500 MG TAB PO SCH (21:00)
--- NOTE | 2019-09-28 16:20 | EKG ---
Test Reason : Blood Pressure : / mmHG Vent. Rate : 063 BPM Atrial Rate : 063 BPM P-R Int : 214 ms QRS Dur : 104 ms QT Int : 404 ms P-R-T Axes : 084 -18 070 degrees QTc Int : 413 ms Sinus rhythm with 1st degree A-V block Otherwise normal ECG Confirmed by BRENNA ELYVA, ENOCH Avalos ([id number]), associate entertainment editor AMAURI MULTANI ([id number]) on 09/28/2019 4:19:21 PM Referred By: Confirmed By:ENOCH CEJA MD
== END 2019-09-22 18:10 | disposition home or self-care (01) ==
LOC: ERS 13:36 → 2SW 15:27
PROVIDERS: ADMIT Internal Medicine; ATTEND Internal Medicine
DX: I95.1 Orthostatic hypotension (principal); U07.1 COVID-19; E11.42 Type 2 diabetes mellitus with diabetic polyneuropathy; I25.10 Atherosclerotic heart disease of native coronary artery without angina pectoris; I12.9 Hypertensive chronic kidney disease with stage 1 through stage 4 chronic kidney disease, or unspecified chronic kidney disease; E11.22 Type 2 diabetes mellitus with diabetic chronic kidney disease; N18.2 Chronic kidney disease, stage 2 (mild); N17.9 Acute kidney failure, unspecified; R79.1 Abnormal coagulation profile; E87.1 Hypo-osmolality and hyponatremia; E86.0 Dehydration; E78.5 Hyperlipidemia, unspecified; F32.9 Major depressive disorder, single episode, unspecified; K21.9 Gastro-esophageal reflux disease without esophagitis; Z86.19 Personal history of other infectious and parasitic diseases; Z79.01 Long term (current) use of anticoagulants; Z79.82 Long term (current) use of aspirin; Z79.84 Long term (current) use of oral hypoglycemic drugs; Z79.899 Other long term (current) drug therapy; Z95.5 Presence of coronary angioplasty implant and graft
CPT/HCPCS: 36415; 36416; 71045; 80048; 80053; 82553; 82728; 83735; 83880; 84443; 84484; 85025; 85379; 85610; 85730; 86140; 93005; 94760; 96360; 96361; G0378; J3430; J3475

== ENCOUNTER 2019-10-29 08:43 | Observation (INO) | payer BC, MEDICARE, OTHER ==
[2019-10-29 09:22] LABS: #Basophils 0.1 thou/uL (0.0-0.2); #Eosinphils 0.2 thou/uL (0.0-0.7); #Lymphocytes 2.2 thou/uL (1.20-3.40); #Monocytes 0.9 thou/uL (0.11-0.59); #Neutrophils 4.3 thou/uL (1.40-6.50); %Basophils 0.7 % (0.0-1.0); %Lymphocytes 28.7 % (21.0-51.0); %Monocytes 11.4 % (0.0-10.0); %Neutrophils 56.3 % (42.0-75.0); Mean Corpuscular HGB CONC 33.6 g/dL (32.0-36.0); Mean Corpuscular Hemoglobin 31.3 pg (27.0-31.0); Mean Corpuscular Volume 93.3 fL (78.0-98.0); Mean Platelet Volume 9.1 fL (7.4-10.4); Platelet Count 206 thou/uL (130-400); RBC Distribution Width 13.7 % (11.5-14.5); Red Blood Cell (RBC) Count 4.78 mill/uL (4.70-6.10); White Blood Cell (WBC) Count 7.6 thou/uL (4.8-10.8)
[2019-10-29 09:33] LABS: Prothrombin Time 46.4 sec (12.0-14.7)
--- NOTE | 2019-10-29 09:43 | RAD ---
EXAM: Single view of the chest HISTORY: Syncope COMPARISON: 09/21/2019 FINDINGS: Single view of the chest shows a normal sized cardiomediastinal silhouette. There is no oscar dence of consolidation, mass, or pleural effusion. Degenerative changes in the spine. Hardware seen in the right humerus. IMPRESSION: No evidence of acute cardiopulmonary disease
[2019-10-29 09:46] LABS: D-Dimer Test Less than 0.27 *mcg/mL (0.27-0.43); INR-International Normal Ratio 5.1
[2019-10-29 09:48] LABS: ALT (SGPT) 30 U/L (8-55); AST (SGOT) 25 U/L (5-34); Albumin 3.7 g/dL (3.4-4.8); Alkaline Phosphatase 82 U/L (40-110); Anion Gap 12 mmol/L (10-20); BUN (Urea Nitrogen) 15 mg/dL (8.4-25.7); Bilirubin, Total 0.4 mg/dL (0.2-1.2); Calc. Creatinine Clearance 0 mL/min (70-130); Calcium 9.9 mg/dL (7.8-10.44); Carbon Dioxide 26 mmol/L (23-31); Chloride 105 mmol/L (98-107); Estimated GFR-MDRD 65; Globulin 3.3 g/dL (2.4-3.5); Glucose 119 mg/dL (80-115); Potassium 3.8 mmol/L (3.5-5.1); Sodium 139 mmol/L (136-145)
--- NOTE | 2019-10-29 09:53 | CT ---
EXAM: CT brain without contrast HISTORY: Syncope and dizziness COMPARISON: 09/11/2019 TECHNIQUE: Multiple contiguous axial images were obtained and a CT of the brain without contrast. FINDINGS: There are scattered hypodensities in the subcortical and periventricular white matter consi stent with small vessel ischemic disease. There is no evidence of hydrocephalus, intracranial hemorrhage, or extra-axial fluid collection. The calvarium and overlying soft tissues are unremarkable. The visualized paranasal sinuses and masto id air cells are well aerated. IMPRESSION: No evidence of acute intracranial abnormality
[2019-10-29 10:10] LABS: CKMB 2.6 ng/mL (0-6.6)
[2019-10-29 11:48] LABS: Bacteria/HPF None Seen HPF (None Seen); Bilirubin Negative (Negative); Blood, Urine Trace (Negative); Clarity Clear (Clear); Glucose, Urine (Dipstick) Greater than 1000 mg/dL (Negative); Ketone, Urine Negative (Negative); Leukocyte Negative Leu/uL (Negative); Nitrite Negative (Negative); Protein, Urine (Dipstick) 70 mg/dL (Neg-Trace); RBC/HPF 0-3 HPF (0-3); Specific Gravity, Urine 1.021 (1.002-1.036); Squamous Epithelial 0-3 HPF (0-3); Urobilinogen Normal mg/dL (Less than 2); WBC/HPF 0-3 HPF (0-3); pH, Urine 5.5 (5.0-9.0)
[2019-10-29 12:40] LABS: Troponin I 0.057 ng/mL (< 0.028)
[2019-10-29] MEDS ORDERED: Ondansetron PF 4 MG/2 ML Vial IVP PRN (12:58)
[2019-10-29] MEDS ORDERED: Acetaminophen 325 MG TAB PO PRN (12:59)
[2019-10-29] MEDS ORDERED: Ondansetron ODT 4 MG TAB PO PRN (12:59)
[2019-10-29] MEDS ORDERED: Dextrose 50% Abboject 50 ML SYRINGE SLOW IVP PRN (13:46)
[2019-10-29] MEDS ORDERED: HumaLOG 300 UNITS/3 ML VIAL SC PRN ×2 (13:46)
[2019-10-29] MEDS ORDERED: Dextrose 5% in Water 1,000 ML IV PRN (13:46)
[2019-10-29] MEDS ORDERED: Loperamide HCl 2 MG CAP PO PRN (13:47)
[2019-10-29] MEDS ORDERED: Calcium Carbonate 500 MG ChewTAB PO PRN (13:47)
[2019-10-29] MEDS ORDERED: Bisacodyl 10 MG SUPP PR PRN (13:47)
[2019-10-29] MEDS ORDERED: HYDROcodone/Acetaminophen 5/325 mg Tablet PO PRN (13:47)
[2019-10-29] MEDS ORDERED: HYDROcodone/Acetaminophen 7.5/325 mg Tablet PO PRN (13:47)
[2019-10-29] MEDS ORDERED: Melatonin 3 MG TAB PO PRN (13:50)
[2019-10-29] MEDS ORDERED: diphenhydrAMINE 25 MG CAP PO PRN (13:50)
[2019-10-29] MEDS ORDERED: Labetalol HCl 100 MG/20 ML VIAL SLOW IVP PRN (13:50)
[2019-10-29] MEDS ORDERED: Benzonatate 100 MG CAP PO PRN (13:50)
[2019-10-29] MEDS ORDERED: Docusate 100 MG CAP PO PRN (13:50)
--- NOTE | 2019-10-29 14:00 | PDOC.HHP ---
Hospitalist HPI - History of Present Illness Near syncope, low blood sugar History of Present Illness: Very pleasant 69-year-old gentleman with past medical history of insulin- dependent diabetes mellitus, coronary artery disease with history of five stents , cerebrovascular accident, left lower extremity DVT on chronic Coumadin, hypertension, hyperlipidemia, and osteoarthritis who presents with near syncopal episode. Patient tells me that this morning he took his 50 units of long-acting insulin, he did not check his sugars at the time and he went to work. The patient got to work, ate a breakfast of pancakes with syrup, and then he was noticing he was very hot and sweaty, feeling weak and not himself. Paramedics arrived at the scene and after his breakfast he was found have a blood sugar in 80s. Patient states that his clothes were soaked through including his shirt and pants. The patient does have a mildly elevated cardiac enzyme on admission and a history of coronary artery disease with five stents in the past. However he has recently seen his health social work professor Dr. Núñez, and only two months ago he underwent cardiac catheterization and he had no lesions that required intervention. With the patient having mild cardiac enzyme elevation he was recommended admitted to the hospital for trending cardiac enzymes. At no point to the patient have any chest pain, shortness of breath, palpitations, or any other symptoms. Patient did not lose consciousness. The patient is status post covid infection over one month ago and he has already tested negative and gone back to work. Hospitalist ROS - Review of Systems All other systems reviewed; all pertinent +/- noted in HPI/Subj Hospitalist History - Past Medical History Source: patient, old records Cardiac: reports: CAD, HTN, Hyperlipidemia Pulmonary: reports: CVA/TIA/stroke, deep vein thrombosis Musculoskeletal: reports: Osteoarthritis - Past Surgical History Past Surgical History: reports: Appendectomy, Total Knee Replacement, Other ( cath) - Family History Family History: reports: hypertension - Social History Smoking Status: Never smoker Alcohol: reports: Rare Drugs: reports: none Living Situation: With Family Domestic Violence: Negative Activity level: independent ambulation - Exam General Appearance: NAD, awake alert Eye: PERRL ENT: normocephalic atraumatic, moist mucosa Neck: supple, symmetric, no lymphadenopathy Heart: RRR, no murmur, no gallops, no rubs, normal peripheral pulses Respiratory: CTAB, no wheezes, no rales, no ronchi, normal chest expansion, no tachypnea Gastrointestinal: soft, non-tender, non-distended, no guarding, no rigidity Extremities: 1+ LE edema (right trace edema) Skin - other findings: Right leg venous stasis dermatitis Neurological: cranial nerve grossly intact, no focal deficits Neurological - other findings: Very mild left leg deficits at baseline from prior CVA Musculoskeletal: normal tone, normal strength Psychiatric: normal affect, normal behavior, A&O x 3 Hospitalist Results - Labs Result Diagrams: 10/29/19 09:12 10/29/19 09:12 Lab results: WBC 7.6 thou/uL (4.8-10.8) 10/29/19 09:12 Hgb 15.0 g/dL (14.0-18.0) 10/29/19 09:12 Hct 44.6 % (42.0-52.0) 10/29/19 09:12 MCV 93.3 fL (78.0-98.0) 10/29/19 09:12 Plt Count 206 thou/uL (130-400) 10/29/19 09:12 Neutrophils % 56.3 % (42.0-75.0) 10/29/19 09:12 Sodium 139 mmol/L (136-145) 10/29/19 09:12 Potassium 3.8 mmol/L (3.5-5.1) 10/29/19 09:12 Chloride 105 mmol/L (98-107) 10/29/19 09:12 Carbon Dioxide 26 mmol/L (23-31) 10/29/19 09:12 BUN 15 mg/dL (8.4-25.7) 10/29/19 09:12 Creatinine 1.12 mg/dL (0.7-1.3) 10/29/19 09:12 Glucose 119 mg/dL (80-115) H 10/29/19 09:12 Calcium 9.9 mg/dL (7.8-10.44) 10/29/19 09:12 Total Bilirubin 0.4 mg/dL (0.2-1.2) 10/29/19 09:12 AST 25 U/L (5-34) 10/29/19 09:12 ALT 30 U/L (8-55) 10/29/19 09:12 Alkaline Phosphatase 82 U/L (40-110) 10/29/19 09:12 CK-MB (CK-2) 2.6 ng/mL (0-6.6) 10/29/19 09:12 Troponin I 0.057 ng/mL (< 0.028) H 10/29/19 11:49 Serum Total Protein 7.0 g/dL (5.8-8.1) 10/29/19 09:12 Albumin 3.7 g/dL (3.4-4.8) 10/29/19 09:12 Urine Ketones Negative mg/dL (Negative) 10/29/19 11:20 Urine Blood Trace (Negative) A 10/29/19 11:20 Urine Nitrite Negative (Negative) 10/29/19 11:20 Ur Leukocyte Esterase Negative Shree/uL (Negative) 10/29/19 11:20 Urine RBC 0-3 HPF (0-3) 10/29/19 11:20 Urine WBC 0-3 HPF (0-3) 10/29/19 11:20 Ur Squamous Epith Cells 0-3 HPF (0-3) 10/29/19 11:20 Urine Bacteria None Seen HPF (None Seen) 10/29/19 11:20 - Radiology Interpretation CT scan - head Status: image reviewed by ne Hospitalist H&P A/P - Problem (1) Near syncope Status: Acute (2) Hypoglycemic episode in patient with diabetes mellitus Code(s): E11.649 - TYPE 2 DIABETES MELLITUS WITH HYPOGLYCEMIA WITHOUT COMA Status: Acute (3) IDDM (insulin dependent diabetes mellitus) Code(s): LCU2244 - Status: Acute (4) HTN (hypertension) Code(s): I10 - ESSENTIAL (PRIMARY) HYPERTENSION Status: Acute (5) HLD (hyperlipidemia) Code(s): E78.5 - HYPERLIPIDEMIA, UNSPECIFIED Status: Acute (6) History of CVA (cerebrovascular accident) Code(s): Z86.73 - PRSNL HX OF TIA (TIA), AND CEREB INFRC W/O RESID DEFICITS Status: Acute (7) CAD (coronary artery disease) Code(s): I25.10 - ATHSCL HEART DISEASE OF [place] CORONARY ARTERY W/O ANG PCTRS Status: Acute - Plan Plan: Plan: admit to medical unit with telemetry trend cardiac enzymes continuous telemetry to monitor for arrhythmia patient has had a recent cardiac catheterization, less than two months ago with Dr. Núñez - no treatable CAD patient at no point had any chest pain, shortness of breath, or palpitations consider cardiology consultation pending above workup I believe if patient symptoms are secondary to hypoglycemic episode, I have split his insulin from 50 QAM, to 25 BID Lantus 25 units b.i.d. insulin sliding-scale consider decrease long-acting insulin if patient's blood sugars are on the lower side continue home antihypertensive medications adjust blood pressure regimen as needed continue other home medications as able hold Coumadin for elevated INR blood pressure control blood sugar control G.I. prophylaxis DVT prophylaxis, super therapeutic INR
[2019-10-29 14:09] VITALS: BMI 37.3
[2019-10-29 16:04] LABS: Troponin I 0.058 ng/mL (< 0.028)
[2019-10-29] MEDS ORDERED: Warfarin Sodium 2 MG TAB PO SCH (17:00)
[2019-10-29] MEDS: metFORMIN 500 MG TAB PO SCH (18:05)
[2019-10-29 20:42] LABS: Troponin I 0.046 ng/mL (< 0.028)
[2019-10-29] MEDS ORDERED: Gabapentin 300 MG CAP PO SCH (21:00)
[2019-10-29] MEDS: buPROPion 75 MG TAB PO SCH (21:10)
[2019-10-29] MEDS: Insulin Glargine 25 UNITS in Pre-Filled Syringe 1 EACH SC SCH (21:14)
[2019-10-29] MEDS: Carvedilol 6.25 MG TAB PO SCH (21:15)
[2019-10-29] MEDS: hydrALAZINE 20 MG/ML VIAL SLOW IVP PRN (21:16)
[2019-10-30 04:15] LABS: #Basophils 0.1 thou/uL (0.0-0.2); #Eosinphils 0.3 thou/uL (0.0-0.7); #Lymphocytes 2.8 thou/uL (1.20-3.40); #Monocytes 0.8 thou/uL (0.11-0.59); #Neutrophils 3.8 thou/uL (1.40-6.50); %Basophils 0.7 % (0.0-1.0); %Eosinophils 3.8 % (0.0-10.0); %Lymphocytes 36.5 % (21.0-51.0); %Monocytes 9.7 % (0.0-10.0); %Neutrophils 49.3 % (42.0-75.0); Hemoglobin 14.1 g/dL (14.0-18.0); Mean Corpuscular HGB CONC 33.2 g/dL (32.0-36.0); Mean Corpuscular Hemoglobin 30.5 pg (27.0-31.0); Mean Corpuscular Volume 91.9 fL (78.0-98.0); Mean Platelet Volume 9.9 fL (7.4-10.4); Platelet Count 204 thou/uL (130-400); White Blood Cell (WBC) Count 7.7 thou/uL (4.8-10.8)
[2019-10-30 04:35] LABS: Anion Gap 13 mmol/L (10-20); BUN (Urea Nitrogen) 12 mg/dL (8.4-25.7); Calc. Creatinine Clearance 142 mL/min (70-130); Calcium 9.1 mg/dL (7.8-10.44); Carbon Dioxide 22 mmol/L (23-31); Chloride 108 mmol/L (98-107); Estimated GFR-MDRD 81; Glucose 152 mg/dL (80-115); Potassium 3.9 mmol/L (3.5-5.1); Sodium 139 mmol/L (136-145)
[2019-10-30] MEDS: hydrALAZINE 20 MG/ML VIAL SLOW IVP PRN (04:50)
[2019-10-30 08:15] VITALS: TEMP 96.4
[2019-10-30] MEDS ORDERED: Loratadine 10 MG TAB PO SCH (09:00)
[2019-10-30] MEDS ORDERED: Tamsulosin HCl 0.4 MG CAP PO SCH (09:00)
[2019-10-30] MEDS ORDERED: Niacin 500 MG TAB PO SCH (09:00)
[2019-10-30] MEDS ORDERED: Aspirin 81 mg Enteric Coated Tablet PO SCH (09:00)
[2019-10-30] MEDS ORDERED: Losartan 25 MG TAB PO SCH (09:00)
[2019-10-30] MEDS: buPROPion 75 MG TAB PO SCH (09:01)
[2019-10-30] MEDS: metFORMIN 500 MG TAB PO SCH (09:03)
[2019-10-30] MEDS: Carvedilol 6.25 MG TAB PO SCH (09:03)
[2019-10-30] MEDS: Insulin Glargine 25 UNITS in Pre-Filled Syringe 1 EACH SC SCH (09:06)
[2019-10-30 12:34] VITALS: BP 168/80
[2019-10-30 14:18] LABS: SARS-CoV-2 MS2 Positive; SARS-CoV-2 N Gene Positive; SARS-CoV-2 S Gene Positive; SARS-CoV-2 by NAA DETECTED (NotDetected); SARS-CoV-2 orf1ab Negative
--- NOTE | 2019-11-02 13:52 | DIS ---
DATE OF ADMISSION: 10/29/2019 DATE OF DISCHARGE: 10/30/2019 DISCHARGE DIAGNOSES: 1. Near syncope, likely due to hypoglycemic episode. 2. Hypoglycemic episode in a patient with diabetes mellitus, insulin dependent. 3. History of CVA. 4. Coronary artery disease with history of PCI. 5. History of COVID infection about 1 month ago. 6. History of left lower extremity deep venous thrombosis, on chronic Coumadin. 7. Hypertension. 8. Dyslipidemia. CONSULTATION: None. HISTORY OF PRESENT ILLNESS AND BRIEF HOSPITAL COURSE: The patient is a very pleasant 69-year-old gentleman, who has significant past medical history of diabetes, on home insulin; CAD with history of PCI; history of CVA; lower extremity DVT, on Coumadin; hypertension; dyslipidemia; who presented to the ED with complaint of near syncopal episode. Apparently, the patient took his insulin and went to work, he is taking 50 units of long-acting insulin, at work he experienced an episode where he broke out in sweat, he was diaphoretic, and feeling dizzy. EMS was called, and his blood glucose was in the low 80s. He was brought to the ED for further evaluation. Initial workup in the ED including brain CT was negative for acute intracranial process, chest x-ray was unremarkable for acute cardiopulmonary process. His troponin was mildly elevated at 0.06. For that reason, the hospitalist was asked to admit the patient for further evaluation. The patient was admitted to [facility] for monitor. His troponin was recycled, went down from 0.06, 0.05, 0.04. The patient denied any chest pain whatsoever. 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 Best, he also underwent a recent heart cath, reportedly no lesions that required intervention at that time. His blood glucose has remained stable. We have changed his Lantus dose from 50 units daily to 25 units b.i.d. He is tolerating a regular diet. He had no further episode. The patient requested to be discharged home. It should be noted that his COVID remains positive at the time of discharge. However, he had no respiratory symptoms or any symptom related to COVID infection whatsoever. The patient was advised to follow up with his PCP in 1 to 2 weeks. The patient was advised to follow up with his filling machine set up mechanic for further management of his CAD and aggressive risk factors modification. DISPOSITION: The patient is stable to discharge home. ACTIVITY: As tolerated. DISCHARGE MEDICATIONS: 1. Aspirin 81 mg p.o. daily. 2. Wellbutrin 75 mg b.i.d. 3. Carvedilol 12.5 mg b.i.d. 4. Gabapentin 300 mg at bedtime. 5. Loratadine 10 mg p.o. daily. 6. Losartan 50 mg p.o. daily. 7. Metformin 1000 mg b.i.d. 8. Niacin 500 mg p.o. daily. 9. Protonix 40 mg p.o. daily. 10. Flomax 0.4 mg p.o. daily. 11. Coumadin 10 mg p.o. daily. The patient was recommended to follow up with his PCP to recheck his INR and make sure it has come down to his therapeutic level. PHYSICAL EXAMINATION: GENERAL APPEARANCE: The patient is awake and alert, not in acute distress. HEENT: Normocephalic and atraumatic. Mucous membranes are moist, PERRL. NECK: Supple. No lymphadenopathy. HEART: Regular rate and rhythm. No murmurs. No rub. RESPIRATORY: Clear to auscultation bilaterally. GASTROINTESTINAL: Soft, nontender, nondistended. No guarding. No rebound. EXTREMITIES: 1+ edema bilaterally. SKIN: Right leg venous stasis dermatitis. NEUROLOGIC: Cranial nerves II through XII grossly intact. No focal deficit. MUSCULOSKELETAL: Normal tone and strength. PSYCHIATRIC: The patient is alert and oriented x3. FOLLOWUP: The patient was advised to follow up with his PCP next week and repeat INR and clear him before return to work. The patient was advised to follow up with his PCP as soon as possible for ongoing management of his CAD and risk factor modification. LABORATORY DATA: CBC; WBC of 7.7, hemoglobin 14.1, hematocrit 42.3, platelets 204. Chemistry; sodium is 139, potassium 3.9, chloride is 108, carbon dioxide 22, anion gap 13, BUN 12, creatinine 0.93, glucose 152. Troponins are as mentioned above. His COVID remains positive, however, he has no symptoms. DISCHARGE INSTRUCTIONS: The patient was advised to take his medications as prescribed. The patient was advised to follow up with his PCP and specialist. The patient was advised to return to ED if symptoms recur or worsen. Job ID: [id number]
== END 2019-10-30 12:25 | disposition home or self-care (01) ==
LOC: ERS 08:43 → 2NO 12:40
PROVIDERS: ADMIT Internal Medicine; ATTEND Internal Medicine
DX: U07.1 COVID-19 (principal); R55 Syncope and collapse; E11.649 Type 2 diabetes mellitus with hypoglycemia without coma; I25.10 Atherosclerotic heart disease of native coronary artery without angina pectoris; I10 Essential (primary) hypertension; E78.5 Hyperlipidemia, unspecified; M19.90 Unspecified osteoarthritis, unspecified site; Z86.718 Personal history of other venous thrombosis and embolism; Z86.73 Personal history of transient ischemic attack (TIA), and cerebral infarction without residual deficits; Z79.01 Long term (current) use of anticoagulants; Z79.4 Long term (current) use of insulin; Z79.82 Long term (current) use of aspirin; Z79.899 Other long term (current) drug therapy; Z95.5 Presence of coronary angioplasty implant and graft
CPT/HCPCS: 36415; 36416; 70450; 71045; 80048; 80053; 81003; 81015; 82553; 84484; 85025; 85379; 85610; 87635; 93005; 96374; 96376; G0378; J0360; J1815; U0003

== ENCOUNTER 2020-03-29 15:27 | Inpatient (IN) | payer BC, MEDICARE ==
[~2020-03-29 15:27] MED LIST: Iopamidol-370 76% 500 ML 1 ML ONE
--- NOTE | 2020-03-29 16:01 | RAD ---
XR Chest 1 View Portable History: Numbness and tingling Comparison: Radiograph October 2019 Findings: Mild lung hypoinflation. No confluent airspace consolidation, pneumothorax or effusion. No acute osseous abnormality. Impression: Mild lung hypoinflation otherwise no acute intrathoracic abnormality.
[2020-03-29 16:09] LABS: #Basophils 0.1 thou/uL (0.0-0.2); #Eosinphils 0.3 thou/uL (0.0-0.7); #Lymphocytes 1.9 thou/uL (1.20-3.40); #Monocytes 1.1 thou/uL (0.11-0.59); %Basophils 0.5 % (0.0-1.0); %Eosinophils 2.5 % (0.0-10.0); %Monocytes 9.7 % (0.0-10.0); %Neutrophils 70.4 % (42.0-75.0); Hemoglobin 15.6 g/dL (14.0-18.0); Mean Corpuscular HGB CONC 33.3 g/dL (32.0-36.0); Mean Corpuscular Hemoglobin 30.6 pg (27.0-31.0); Mean Corpuscular Volume 91.9 fL (78.0-98.0); Mean Platelet Volume 8.4 fL (7.4-10.4); Platelet Count 199 thou/uL (130-400); RBC Distribution Width 12.6 % (11.5-14.5); White Blood Cell (WBC) Count 11.3 thou/uL (4.8-10.8)
[2020-03-29 16:14] LABS: PTT 25.5 sec (22.9-36.1); Prothrombin Time 13.5 sec (12.0-14.7)
[2020-03-29] MEDS ORDERED: niCARdipine 20MG In NaCl 20 MG/200 ML BAG ONE (16:21)
--- NOTE | 2020-03-29 16:28 | CT ---
CT BRAIN WITHOUT CONTRAST: HISTORY:Altered mental status COMPARISON:10/29/2019 FINDINGS: There are foci of decreased attenuation in the periventricular white matter, consistent with chronic small vessel ischemic disease. No evidence of acute infarct, hemorrhage, midline shift or abnormal extra-axial fluid collections is seen. The ventricular size is appropriate and the basilar cisterns are patent. The bony calvarium is intact. There is mild mucosal disease in the paranasal sinuses. The mastoid air cells are well-aerated. IMPRESSION: No CT evidence of acute intracranial process.
[2020-03-29 16:30] LABS: ALT (SGPT) 17 U/L (8-55); AST (SGOT) 13 U/L (5-34); Albumin 3.9 g/dL (3.4-4.8); Alkaline Phosphatase 78 U/L (40-110); Anion Gap 14 mmol/L (10-20); BUN (Urea Nitrogen) 12 mg/dL (8.4-25.7); Calc. Creatinine Clearance 0 mL/min (70-130); Calcium 9.7 mg/dL (7.8-10.44); Carbon Dioxide 25 mmol/L (23-31); Chloride 101 mmol/L (98-107); Globulin 3.3 g/dL (2.4-3.5); Glucose 175 mg/dL (80-115); Potassium 4.3 mmol/L (3.5-5.1); Protein, Total 7.2 g/dL (5.8-8.1); Sodium 136 mmol/L (136-145)
[2020-03-29] MEDS ORDERED: Vancomycin 1 GM/200 ML BAG ONE (16:33)
[2020-03-29] MEDS ORDERED: Piperacillin/Tazobactam 3.375 GM VIAL ONE (16:33)
[2020-03-29 17:09] LABS: SARS-CoV-2 NAA Rapid Test DETECTED (NotDetected)
[2020-03-29] MEDS ORDERED: Acetaminophen 500 MG TAB ONE (17:11)
[2020-03-29 17:14] LABS: Bacteria/HPF None Seen HPF (None Seen); Bilirubin Negative (Negative); Blood, Urine Trace (Negative); Clarity Clear (Clear); Glucose, Urine (Dipstick) 70 mg/dL (Negative); Ketone, Urine Trace mg/dL (Negative); Leukocyte Negative Leu/uL (Negative); Nitrite Negative (Negative); Protein, Urine (Dipstick) 200 mg/dL (Neg-Trace); RBC/HPF 0-3 HPF (0-3); Specific Gravity, Urine 1.019 (1.002-1.036); Squamous Epithelial None Seen HPF (0-3); Urobilinogen Normal mg/dL (Less than 2); WBC/HPF 0-3 HPF (0-3); pH, Urine 6.5 (5.0-9.0)
[2020-03-29 17:39] LABS: CKMB 1.1 ng/mL (0-6.6)
[2020-03-29] MEDS ORDERED: hydrALAZINE 25 MG TAB ONE (17:57)
[2020-03-29] MEDS ORDERED: Aspirin Chewable 81 MG TAB ONE (17:57)
[2020-03-29] MEDS ORDERED: Acetaminophen 325 MG TAB PO PRN (18:29)
[2020-03-29] MEDS ORDERED: Ondansetron PF 4 MG/2 ML Vial IVP PRN (18:29)
[2020-03-29] MEDS ORDERED: Senokot S 8.6-50 MG TAB PO PRN (18:29)
[2020-03-29] MEDS ORDERED: HYDROcodone/Acetaminophen 7.5/325 mg Tablet PO PRN (18:29)
[2020-03-29] MEDS ORDERED: Dextrose 50% Abboject 50 ML SYRINGE SLOW IVP PRN (18:30)
[2020-03-29] MEDS ORDERED: HumaLOG 300 UNITS/3 ML VIAL SC PRN (18:30)
[2020-03-29] MEDS ORDERED: Dextrose 5% in Water 1,000 ML IV PRN (18:30)
[2020-03-29] MEDS ORDERED: PROVENTIL INHALER 6.7 G (200 INHALATIONS) INH PRN (18:36)
[2020-03-29] MEDS ORDERED: Carvedilol 25 MG TAB PO SCH (19:00)
--- NOTE | 2020-03-29 19:05 | CT ---
CT angiogram chest: 03/29/2020 COMPARISON: None HISTORY: Shortness of breath with nausea and lightheadedness TECHNIQUE: Axial CT imaging at 2.5 mm intervals through the chest with IV contrast using CT angiogram protocol. Coronal and sagittal 3-D reformatted imaging obtained. FINDINGS: Evaluation for pulmonary arterial embolism is suboptimal secondary to suboptimal opacificat ion of the pulmonary arterial vasculature as well as motion artifact. There is no axillary, mediastinal, or hilar lymphadenopathy seen. Partially imaged calcified gallstones are noted within th e gallbladder lumen. No pleural, pericardial, or mediastinal fluid. Multi focal coronary arterial calcification and stent material. No obvious central pulmonary arterial filling defect is seen within the pulmonary arterial trunk or e ither main pulmonary artery. Lobar segmental and subsegmental pulmonary arterial branches are not well assessed. Evaluation of bilateral lower lobes is limited by motion. No pulmonary parenchymal abnormality is jamie reciated on the right. The left upper lobe is unremarkable. There is a focal area of peripheral inferior posterior left lower lobe pulmonary parenchymal opacity suggesting left lower lobe infectiou s pneumonitis or aspiration. Review of the osseous structures demonstrates no worrisome lytic or blastic bone lesion. IMPRESSION: Suboptimal assessment for pulmonary arterial embolism demonstrating no definite central p ulmonary arterial embolism. Focal peripheral pleural-based airspace disease in the inferior posterior left lower lobe suspicious for infectious pneumonitis or aspiration. Prominent coronary art erial calcification and stent material.
[2020-03-29] MEDS ORDERED: Sodium Chloride 0.9% 1,000 ML IV SCH (19:15)
[2020-03-29] MEDS ORDERED: Warfarin Sodium 10 MG TAB PO SCH (19:15)
[2020-03-29] MEDS ORDERED: Albuterol 200 PUFF (6.7GM INHALER) ONE (19:40)
[2020-03-29 19:47] LABS: Troponin I 0.085 ng/mL (< 0.028)
[2020-03-29] MEDS ORDERED: Azithromycin 500 MG in Sodium Chloride 0.9% 250 ML 250 ML IVPB SCH ×2 (20:00→23:59)
[2020-03-29] MEDS ORDERED: Famotidine 20 MG TAB PO SCH (21:00)
--- NOTE | 2020-03-29 22:04 | HP ---
CHIEF COMPLAINT: Change in mental status. HISTORY OF PRESENT ILLNESS: The patient is a 69-year-old male, who initially presented to the pain clinic for severe lower back pain. However, he was noted to have an elevated blood pressure. At this time, he was brought into the hospital for further evaluation. The patient per the ER records was noted to have a blood pressure of 200 systolic. At this time, he was started on the Cardene drip. The patient also was noted to have some change in mental status. The patient states he denies any fevers or chills. He has been eating well. He has no diarrhea. He states that he has been diagnosed with COVID back in August. He denies any recent illnesses. However, in the ER, he was noted to have a temperature of a 101.1 and he has complaints of just generalized weakness. He has no bowel or urine incontinence at all. No recent surgeries. No recent devices put in. No sick contacts. PAST MEDICAL HISTORY: The patient's past medical history of; 1. Coronary artery disease x6 stents. 2. Diabetes. 3. Peripheral neuropathy. 4. Hyperlipidemia. 5. Hypertension. 6. Depression. 7. GERD. PAST SURGICAL HISTORY: He has had an appendectomy, right shoulder surgery, bilateral knee surgery, and cardiac cath in the past. SOCIAL HISTORY: He is a two pack a day smoker for 10 to 15 years, quit in 2000. Drinks alcohol socially. He is a full code. No illicit drug use and lives alone. FAMILY HISTORY: No history of heart disease or stroke. ALLERGIES: HE HAS NO KNOWN DRUG ALLERGIES. MEDICATIONS: He is on; 1. Aspirin 81 mg daily. 2. Carvedilol 12.5 twice a day. 3. Pantoprazole 40 mg daily. 4. Metformin 1000 mg twice a day. 5. Gabapentin 300 mg daily. 6. Bupropion 75 mg daily. 7. He is on warfarin, but his warfarin is on hold due to possible interventions for his lower back pain. REVIEW OF SYSTEMS: All negative except for the ones mentioned above in the HPI. PHYSICAL EXAMINATION: VITAL SIGNS: As of the following; temperature of 101.3, respiratory rate 29, heart rate 126, and blood pressure 169/94. GENERAL: He is awake, alert, and oriented x3. Does not appear in distress. CV: S1 and S2 present. No murmurs, rubs, or gallops. He is just sinus tachycardic. LUNGS: He has some mild wheezing to bilateral lung. ABDOMEN: Soft and nontender. Bowel sounds are present x2. EXTREMITIES: He has chronic venous status changes, maybe 1+ lower extremity edema. NEUROVASCULAR: He has no focal deficits noted. SKIN: No cuts or lesions noted except for chronic venous stasis to the bilateral lower extremity. LABORATORY RESULTS: As of the following; WBCs of 11.3, hemoglobin of 15.6, hematocrit of 46.9, and his platelets of 199. Chemistry; sodium of 136, potassium of 4.3, BUN of 12, and creatinine 1.14. His troponin is 0.068 and his BNP is 157. The CRP is 6.5. He did have a chest x-ray and CT head. The CT head indicated no acute abnormalities. The chest x-ray indicated mild lung hyperinflation, otherwise no acute intrathoracic abnormalities. ASSESSMENT AND PLAN: The patient is a 69-year-old male, who presents to the hospital with complaints of change in mental status. 1. Acute metabolic encephalopathy. This could be given his elevated blood pressure. In the ED, his blood pressure in triage was noted to be 250/121. He was started on a Cardene drip. He is currently in the 160s. We will start him on his home medications and see if we can titrate that down, the Cardene drip off. Also, the patient currently has no pain. 2. Generalized weakness. He appears ill. We will get a CTA. I do not have a source for his infection. He does have a fever 101. Blood cultures are done. Urine does not appear to be significantly infected. We will start him on some gentle hydration and continue to monitor. 3. Mildly elevated troponins. The patient has had CAD. His troponins are just indeterminate. We will go ahead and trend them and see how he does. 4. Deep venous thrombosis prophylaxis. We will check an INR and start the patient back on his Coumadin. In the meantime, we will put him on Lovenox. 5. Possible pneumonia. We will start him on broad-spectrum antibiotics till we figure out what is the source of his sepsis. Job ID: [id number]
[2020-03-29 23:22] LABS: Troponin I 0.082 ng/mL (< 0.028)
[2020-03-29 23:56] VITALS: BMI 35.3
[2020-03-29] MEDS: Gabapentin 300 MG CAP PO SCH (23:58)
[2020-03-30] MEDS ORDERED: Vancomycin HCl 1.75 GM in Sodium Chloride 0.9% 500 ML IVPB SCH (01:00)
[2020-03-30] MEDS: Piperacillin/Tazobactam 4.5 GM in Sodium Chloride 0.9% 100 ML IVPB SCH ×3 (01:12→12:02)
[2020-03-30 05:32] LABS: #Eosinphils 0.4 thou/uL (0.0-0.7); #Monocytes 1.1 thou/uL (0.11-0.59); #Neutrophils 4.8 thou/uL (1.40-6.50); %Basophils 0.5 % (0.0-1.0); %Eosinophils 4.2 % (0.0-10.0); %Lymphocytes 23.6 % (21.0-51.0); %Monocytes 13.7 % (0.0-10.0); Hemoglobin 13.5 g/dL (14.0-18.0); Mean Corpuscular HGB CONC 32.9 g/dL (32.0-36.0); Mean Corpuscular Hemoglobin 30.3 pg (27.0-31.0); Mean Corpuscular Volume 92.2 fL (78.0-98.0); Mean Platelet Volume 8.9 fL (7.4-10.4); Platelet Count 179 thou/uL (130-400); RBC Distribution Width 12.7 % (11.5-14.5); Red Blood Cell (RBC) Count 4.46 mill/uL (4.70-6.10); White Blood Cell (WBC) Count 8.3 thou/uL (4.8-10.8)
[2020-03-30 05:51] LABS: Anion Gap 14 mmol/L (10-20); BUN (Urea Nitrogen) 12 mg/dL (8.4-25.7); Calc. Creatinine Clearance 140 mL/min (70-130); Calcium 8.6 mg/dL (7.8-10.44); Carbon Dioxide 23 mmol/L (23-31); Chloride 104 mmol/L (98-107); Glucose 166 mg/dL (80-115); Potassium 3.6 mmol/L (3.5-5.1); Sodium 137 mmol/L (136-145)
[2020-03-30] MEDS: Aspirin 81 mg Enteric Coated Tablet PO SCH (08:48)
[2020-03-30] MEDS: Tamsulosin HCl 0.4 MG CAP PO SCH (08:49)
[2020-03-30] MEDS ORDERED: Enoxaparin Sodium 40 MG/0.4 ML SYRINGE SC SCH (09:00)
[2020-03-30] MEDS ORDERED: Vancomycin HCl 1.5 GM in Sodium Chloride 0.9% 250 ML 300 ML IVPB SCH (09:00)
[2020-03-30 11:36] LABS: Prothrombin Time 13.6 sec (12.0-14.7)
[2020-03-30] MEDS ORDERED: Acetaminophen/Codeine 30-300mg Tablet PO PRN (14:39)
--- NOTE | 2020-03-30 14:42 | PDOC.HOSPP ---
- Subjective Encounter Date: 03/30/20 Encounter Time: 10:00 Subjective: Patient up in bed feels much better today. - Objective Vital Signs & Weight: Vital Signs (12 hours) Temp Pulse Resp BP Pulse Ox 03/30/20 10:51 98.2 F 67 18 184/79 H 98 03/30/20 03:30 97.8 F 65 20 136/62 100 Weight Weight 275 lb 1.6 oz Result Diagrams: 03/30/20 04:50 03/30/20 04:50 Additional Labs: Accuchecks 03/30/20 03/30/20 10:49 05:23 POC Glucose 139 H 161 H Hospitalist ROS - Review of Systems Cardiovascular: denies: chest pain, palpitations, orthopnea, paroxysmal noc. dyspnea, edema, light headedness, other Gastrointestinal: denies: nausea, vomiting, abdominal pain, diarrhea, constipation, melena, hematochezia, other Genitourinary: denies: dysuria, frequency, incontinence, hematuria, retention, o ther - Medication Medications: Active Medications Generic Name Dose Route Start Last Admin Trade Name Nilayq PRN Reason Stop Dose Admin Aspirin 81 mg 03/30/20 09:00 03/30/20 08:48 Aspirin 81 Mg Enteric Coated Tablet PO 81 mg DAILY HAKEEM Administration Gabapentin 300 mg 03/29/20 21:00 03/29/20 23:58 Gabapentin 300 Mg Cap PO 300 mg HS HAKEEM Administration Pantoprazole Sodium 40 mg 03/30/20 09:00 03/30/20 08:48 Pantoprazole 40 Mg Tab PO 40 mg DAILY HAKEEM Administration Tamsulosin HCl 0.4 mg 03/30/20 09:00 03/30/20 08:49 Tamsulosin Hcl 0.4 Mg Cap PO 0.4 mg DAILY HAKEEM Administration - Exam Neck: negative: supple, symmetric, no JVD, no thyromegaly, no lymphadenopathy, no carotid bruit, JVD Heart: negative: RRR, no murmur, no gallops, no rubs, normal peripheral pulses, irregular, diminshed peripheral pulses, murmur present, II/IV, III/IV Respiratory: negative: CTAB, no wheezes, no rales, no ronchi, normal chest expansion, no tachypnea, normal percussion, rales, rhonchi, tachypneic, wheezes Gastrointestinal: negative: soft, non-tender, non-distended, normal bowel sounds, no palpable masses, no hepatomegaly, no splenomegaly, no bruit, no guarding, no rigidity, tender to palpation, distended, diminished bowl sounds, voluntary guarding Hosp A/P (1) CAD (coronary artery disease) Code(s): I25.10 - ATHSCL HEART DISEASE OF [place] CORONARY ARTERY W/O ANG PCTRS Status: Acute (2) HLD (hyperlipidemia) Code(s): E78.5 - HYPERLIPIDEMIA, UNSPECIFIED Status: Acute (3) IDDM (insulin dependent diabetes mellitus) Code(s): LSV9699 - Status: Acute (4) Sepsis Code(s): A41.9 - SEPSIS, UNSPECIFIED ORGANISM Status: Acute (5) Pneumonia Code(s): J18.9 - PNEUMONIA, UNSPECIFIED ORGANISM Status: Acute - Plan Patient has mild pneumonia to the left lower lobe of his lung. Most likely community-acquired pneumonia. CT chest otherwise no acute changes. Patient had Covid back in August. He is not hypoxic currently. We will de-escalate his antibiotics to Levaquin for now and watch him overnight. Blood culture so far negative urine negative patient states that he feels much better. Will restart patient's Coumadin.
[2020-03-30] MEDS ORDERED: Lisinopril 20 MG TAB PO SCH (15:00)
[2020-03-30] MEDS: Cyclobenzaprine 10 MG TAB PO SCH ×2 (15:15→20:54)
[2020-03-30] MEDS: metFORMIN 500 MG TAB PO SCH (15:17)
[2020-03-30] MEDS: Warfarin Sodium 10 MG TAB PO SCH (15:18)
[2020-03-30 16:45] LABS: Platelet Count 201 thou/uL (130-400)
[2020-03-30] MEDS: Carvedilol 6.25 MG TAB PO SCH (20:51)
[2020-03-30] MEDS: Gabapentin 300 MG CAP PO SCH (20:52)
[2020-03-30] MEDS: buPROPion 75 MG TAB PO SCH (20:57)
[2020-03-30] MEDS: NPH, Human Insulin Isophane 300 UNIT/3 ML VIAL SC SCH (20:58)
[2020-03-30] MEDS ORDERED: Atorvastatin Calcium 40 MG TAB PO SCH (21:00)
[2020-03-31] MEDS: hydrALAZINE 20 MG/ML VIAL SLOW IVP PRN ×2 (04:51→08:38)
[2020-03-31 05:20] LABS: INR-International Normal Ratio 1.1; Prothrombin Time 14.7 sec (12.0-14.7)
[2020-03-31] MEDS: Cyclobenzaprine 10 MG TAB PO SCH ×2 (08:09→14:21)
[2020-03-31] MEDS: Carvedilol 6.25 MG TAB PO SCH (08:09)
[2020-03-31] MEDS: Aspirin 81 mg Enteric Coated Tablet PO SCH (08:09)
[2020-03-31] MEDS: Tamsulosin HCl 0.4 MG CAP PO SCH (08:09)
[2020-03-31] MEDS: metFORMIN 500 MG TAB PO SCH ×2 (08:09→16:03)
[2020-03-31] MEDS: NPH, Human Insulin Isophane 300 UNIT/3 ML VIAL SC SCH (08:09)
[2020-03-31] MEDS: buPROPion 75 MG TAB PO SCH (08:15)
[2020-03-31] MEDS ORDERED: Losartan 25 MG TAB PO SCH (09:00)
[2020-03-31] MEDS ORDERED: Lisinopril 20 MG TAB PO SCH ×2 (09:00→21:00)
[2020-03-31] MEDS ORDERED: Niacin 500 MG TAB PO SCH (09:00)
[2020-03-31] MEDS ORDERED: Loratadine 10 MG TAB PO SCH (09:00)
[2020-03-31] MEDS ORDERED: Carvedilol 6.25 MG TAB PO SCH (10:14)
[2020-03-31] MEDS ORDERED: Carvedilol 25 MG TAB PO SCH ×2 (10:30→21:00)
[2020-03-31] MEDS: Warfarin Sodium 10 MG TAB PO SCH (16:02)
[2020-03-31 16:45] VITALS: BP 164/75; TEMP 98.1
--- NOTE | 2020-03-31 17:04 | PDOC.DS.DS ---
Provider - Provider Date of Admission: 03/29/20 17:51 Date of Discharge: 03/31/20 Admitting Provider: Zofia Sharpe MD Primary Care Physician: Murali Adams MD Course - Hospital Course Hospital Course: Patient is a very pleasant 69-year-old male who initially presented to the hospital with change in mental status. He was noted to have a fever and elevated blood pressure. Patient initially was sent from the pain clinic. Patient was put on broad-spectrum antibiotics which were then deescalated and patient was watched overnight. He had no more fever. He was back to his baseline. Patient will be discharged home he will follow-up with his primary care. Patient was off the Coumadin for his spinal injections I I have restarted patient's Coumadin since he is now Covid positive. It appears the patient was Covid positive back in August. Patient was noted to have some expiratory wheezing however his CTA did not show any Covid type appearances. He is a former smoker smoking 2 packs a day for many years. We will start him on a Medrol Dosepak, albuterol and I will also continue antibiotics. He does have some infiltrate in his left lower lobe. I recommended the patient to take 50 mg of Coumadin today and tomorrow and then 10 and recheck his INR. Case management was unable to set up outpatient INR since patient normally goes to physician center and he will be unable to do so since he is Covid positive. 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 I have also increased his blood pressure medication for better blood pressure control and have educated him to refrain from salt. CTA was suboptimal however he was ambulated in the room and he did not require any oxygen. Resuscitation Status: 03/29/20 18:29 Resuscitation Status Routine Resuscitation Status: FULL: Full Resuscitation - Labs Lab Results: 03/30/20 16:34 03/30/20 04:50 Abnormal Lab Results - Last 48 hrs 03/29/20 15:52: B-Natriuretic Peptide 157.8 H 03/29/20 15:52: Troponin I 0.068 H 03/29/20 16:00: SARS-CoV-2 Rap RNA(RT-PCR) DETECTED A* 03/29/20 16:52: Urine Protein 200 A, Urine Glucose (UA) 70 A, Urine Ketones Trace A, Urine Blood Trace A 03/29/20 18:03: C-Reactive Protein 6.55 H 03/29/20 18:03: D-Dimer 0.87 H 03/29/20 19:08: Troponin I 0.085 H 03/29/20 22:40: Troponin I 0.082 H 03/30/20 04:50: RBC 4.46 L, Hgb 13.5 L, Hct 41.1 L, Monocytes % 13.7 H, Monocytes # 1.1 H Microbiology - Entire Visit 03/29/20 16:52 Urine voided Urine Culture - Final Beta-hemolytic Streptococcus 03/29/20 16:03 Venous blood - Right Hand Blood Culture - Preliminary NO GROWTH AT 48 HOURS 03/29/20 15:45 Venous blood - Right Arm Blood Culture - Preliminary NO GROWTH AT 48 HOURS - Physical Exam Vitals: Vital Signs (12 hours) Temp Pulse Pulse Pulse Pulse Resp BP 03/31/20 16:05 98.1 F 70 16 03/31/20 11:14 97.9 F 76 16 03/31/20 10:04 62 67 65 03/31/20 08:58 03/31/20 08:53 03/31/20 08:38 188/78 H 03/31/20 08:33 03/31/20 07:35 97.9 F 70 18 03/31/20 06:20 03/31/20 05:27 188/78 H BP BP BP BP BP BP Pulse Ox 03/31/20 16:05 164/75 H 98 03/31/20 11:14 137/62 97 03/31/20 10:04 150/67 H 137/65 180/81 H 03/31/20 08:58 157/75 H 03/31/20 08:53 157/75 H 03/31/20 08:38 03/31/20 08:33 199/90 H 03/31/20 07:35 205/88 H 97 03/31/20 06:20 176/72 H 03/31/20 05:27 Pulse Ox Pulse Ox Pulse Ox 03/31/20 16:05 03/31/20 11:14 03/31/20 10:04 96 95 96 03/31/20 08:58 03/31/20 08:53 03/31/20 08:38 03/31/20 08:33 03/31/20 07:35 03/31/20 06:20 03/31/20 05:27 Weight Weight 275 lb 1.6 oz Physical Exam: The patient was seen and examined on the day of discharge. Problem - Problem (1) CAD (coronary artery disease) Code(s): I25.10 - ATHSCL HEART DISEASE OF [place] CORONARY ARTERY W/O ANG PCTRS Status: Acute (2) HLD (hyperlipidemia) Code(s): E78.5 - HYPERLIPIDEMIA, UNSPECIFIED Status: Acute (3) IDDM (insulin dependent diabetes mellitus) Code(s): [id number] - Status: Acute (4) Sepsis Code(s): A41.9 - SEPSIS, UNSPECIFIED ORGANISM Status: Acute (5) Pneumonia Code(s): J18.9 - PNEUMONIA, UNSPECIFIED ORGANISM Status: Acute Plan - Discharge Medications Prescriptions: Acetaminophen W/ Codeine [Tylenol #3] 1 tab PO BID PRN #10 tab PRN Reason: pain Albuterol Sulfate [Albuterol Sulfate Hfa] 18 gm IH Q8H PRN #1 hfa.aer.ad PRN Reason: Sob &/Or Wheezing Carvedilol [Coreg] 25 mg PO BID #60 tab Losartan Potassium [Cozaar] 100 mg PO DAILY #30 tablet Saccharomyces boulardii [Florastor] 250 mg PO DAILY #15 cap Levofloxacin [Levaquin] 750 mg PO DAILY #12 tab methylPREDNISolone [Medrol] 4 mg PO DAILY #1 tab.ds.pk Home Medications: Medication Instructions Recorded Confirmed Type Aspirin [Ecotrin Low Strength] 81 mg PO DAILY 09/12/19 03/29/20 History Gabapentin 300 mg PO HS 09/12/19 03/29/20 History Loratadine [Claritin] 10 mg PO DAILY 09/12/19 03/29/20 History Niacin (Inositol Niacinate) 500 mg PO DAILY 09/12/19 03/29/20 History [Niacin 500 mg Capsule] Pantoprazole [Protonix] 40 mg PO DAILY 09/12/19 03/29/20 History Tamsulosin HCl 0.4 mg PO DAILY 09/12/19 03/29/20 History buPROPion [Wellbutrin] 75 mg PO BID 09/12/19 03/29/20 History metFORMIN [Glucophage] 1,000 mg PO BID-WM 09/12/19 03/29/20 History Warfarin Sodium [Coumadin] 10 mg PO DAILY #0 09/22/19 03/29/20 Rx Atorvastatin Calcium [Lipitor] 80 mg PO HS 03/29/20 03/29/20 History Cyclobenzaprine [Flexeril] 10 mg PO TID 03/29/20 03/29/20 History Insulin NPH Human Isophane 30 unit SQ BID 03/29/20 03/29/20 History [Novolin N Flexpen] Acetaminophen W/ Codeine [Tylenol 1 tab PO BID PRN #10 tab 03/31/20 Rx #3] Albuterol Sulfate [Albuterol 18 gm IH Q8H PRN #1 hfa.aer.ad 03/31/20 Rx Sulfate Hfa] Carvedilol [Coreg] 25 mg PO BID #60 tab 03/31/20 Rx Levofloxacin [Levaquin] 750 mg PO DAILY #12 tab 03/31/20 Rx Losartan Potassium [Cozaar] 100 mg PO DAILY #30 tablet 03/31/20 Rx Saccharomyces boulardii [Florastor] 250 mg PO DAILY #15 cap 03/31/20 Rx methylPREDNISolone [Medrol] 4 mg PO DAILY #1 tab.ds.pk 03/31/20 Rx Allergies: No Known Allergies Allergy (Verified 03/29/20 23:54) - Discharge Instructions Activity:: Activity as Tolerated Nourishment:: Heart Healthy Diet - Follow up Plan Referrals: [facility] [Outside] Murali Adams MD [Primary Care Provider] - Disposition: HOME Quality - Care Measures CORE MEASURES:: N/A
--- NOTE | 2020-04-01 10:09 | EKG ---
Test Reason : TACHYCARDIA Blood Pressure : / mmHG Vent. Rate : 100 BPM Atrial Rate : 100 BPM P-R Int : 196 ms QRS Dur : 100 ms QT Int : 332 ms P-R-T Axes : 000 -08 051 degrees QTc Int : 428 ms Normal sinus rhythm Minimal voltage criteria for LVH, may be normal variant Borderline ECG Confirmed by BRENNA LEYVA, ENOCH Avalos ([id number]), video tape editor MITCH ALLEN ([id number]) on 04/01/2020 10:08:50 AM Referred By: Confirmed By:ENOCH CEJA MD
== END 2020-03-31 17:44 | disposition home or self-care (01) | DRG 871 ==
LOC: ERS 15:27 → 2SW 17:51
PROVIDERS: ADMIT Internal Medicine; ATTEND Internal Medicine
PROC: 8E0ZXY6 Isolation (ICD-10-PCS; principal; 2020-03-29)
DX: A41.89 Other specified sepsis (principal); U07.1 COVID-19; G93.41 Metabolic encephalopathy; J12.82 Pneumonia due to coronavirus disease 2019; I16.1 Hypertensive emergency; I25.10 Atherosclerotic heart disease of native coronary artery without angina pectoris; E78.5 Hyperlipidemia, unspecified; E11.51 Type 2 diabetes mellitus with diabetic peripheral angiopathy without gangrene; I10 Essential (primary) hypertension; F32.9 Major depressive disorder, single episode, unspecified; K21.9 Gastro-esophageal reflux disease without esophagitis; F17.210 Nicotine dependence, cigarettes, uncomplicated; Z79.82 Long term (current) use of aspirin; Z79.02 Long term (current) use of antithrombotics/antiplatelets; Z79.4 Long term (current) use of insulin; Z79.899 Other long term (current) drug therapy
CPT/HCPCS: 0240U; 36415; 36416; 70450; 71045; 71275; 80048; 80053; 81003; 81015; 82553; 82728; 83605; 83880; 84484; 85025; 85379; 85610; 85730; 86140; 87040; 87086; 93005; 94760; 96365; 96366; 96367; 99292; J0360; J0456; J1650; J1815; J1956; J2543; J3370; J3490; J7030; J7050; Q9967

== ENCOUNTER 2020-05-07 22:35 | Emergency (ER) | payer BC, MEDICARE ==
[2020-05-07 23:05] LABS: #Basophils 0.1 thou/uL (0.0-0.2); #Eosinphils 0.2 thou/uL (0.0-0.7); #Lymphocytes 3.1 thou/uL (1.20-3.40); #Monocytes 0.7 thou/uL (0.11-0.59); #Neutrophils 3.9 thou/uL (1.40-6.50); %Basophils 0.9 % (0.0-1.0); %Eosinophils 2.9 % (0.0-10.0); %Monocytes 8.3 % (0.0-10.0); %Neutrophils 48.9 % (42.0-75.0); Hemoglobin 14.8 g/dL (14.0-18.0); Mean Corpuscular HGB CONC 33.6 g/dL (32.0-36.0); Mean Corpuscular Hemoglobin 30.9 pg (27.0-31.0); Mean Corpuscular Volume 91.8 fL (78.0-98.0); Mean Platelet Volume 8.8 fL (7.4-10.4); Platelet Count 189 thou/uL (130-400); RBC Distribution Width 13.1 % (11.5-14.5); Red Blood Cell (RBC) Count 4.78 mill/uL (4.70-6.10)
--- NOTE | 2020-05-07 23:20 | RAD ---
Portable frontal chest radiograph: 05/07/2020 COMPARISON: 03/29/2020 HISTORY: Chest pain FINDINGS: Stable heart and mediastinal contours. No pneumothorax or pleural fluid. No focal consolida tion or alveolar edema. Stable prominence of the cardiac silhouette and tortuosity of the thoracic aorta. IMPRESSION: No acute findings.
[2020-05-07 23:25] LABS: ALT (SGPT) 19 U/L (8-55); AST (SGOT) 30 U/L (5-34); Albumin 3.6 g/dL (3.4-4.8); Alkaline Phosphatase 72 U/L (40-110); Anion Gap 12 mmol/L (10-20); BUN (Urea Nitrogen) 12 mg/dL (8.4-25.7); Bilirubin, Total 0.5 mg/dL (0.2-1.2); CK (CPK) 221 U/L (30-200); Calc. Creatinine Clearance 0 mL/min (70-130); Carbon Dioxide 23 mmol/L (23-31); Chloride 108 mmol/L (98-107); Globulin 2.8 g/dL (2.4-3.5); Glucose 129 mg/dL (80-115); Lipase 11 U/L (8-78); Potassium 3.9 mmol/L (3.5-5.1); Protein, Total 6.4 g/dL (5.8-8.1); Sodium 139 mmol/L (136-145)
[2020-05-07] MEDS ORDERED: Enoxaparin Sodium 100 MG/ML SYRINGE ONE (23:35)
[2020-05-07] MEDS ORDERED: Enoxaparin Sodium 30 MG/0.3 ML SYRINGE ONE (23:35)
[2020-05-07] MEDS ORDERED: Nitroglycerin 2% Ointment 1 INCH/1 GM Packet ONE (23:35)
[2020-05-07 23:52] LABS: CKMB 12.8 ng/mL (0-6.6)
== END 2020-05-08 02:02 | disposition short-term general hospital (02) ==
LOC: ERS 22:35
DX: I21.4 Non-ST elevation (NSTEMI) myocardial infarction (principal); E11.40 Type 2 diabetes mellitus with diabetic neuropathy, unspecified; K21.9 Gastro-esophageal reflux disease without esophagitis; I25.2 Old myocardial infarction; E78.5 Hyperlipidemia, unspecified; Z79.899 Other long term (current) drug therapy; Z79.4 Long term (current) use of insulin
CPT/HCPCS: 36415; 71045; 80053; 82550; 82553; 83690; 84484; 85025; 93005; 96372; J1650

== ENCOUNTER 2020-05-23 19:46 | Emergency (ER) | payer BC, MEDICARE ==
[~2020-05-23 19:46] MED LIST changes: -Iopamidol-370 76% 500 ML 1 ML ONE; +Metoprolol Tartrate 5 MG/5 ML VIAL ONE; +Nitroglycerin 0.4 MG TAB (25 Tab Bottle) ONE
[2020-05-23] MEDS ORDERED: Morphine 4 MG/ML VIAL ONE (19:57)
[2020-05-23 20:21] LABS: #Basophils 0.1 thou/uL (0.0-0.2); #Eosinphils 0.4 thou/uL (0.0-0.7); #Lymphocytes 2.8 thou/uL (1.20-3.40); #Monocytes 0.7 thou/uL (0.11-0.59); #Neutrophils 4.8 thou/uL (1.40-6.50); %Basophils 0.9 % (0.0-1.0); %Eosinophils 4.5 % (0.0-10.0); %Lymphocytes 31.4 % (21.0-51.0); %Monocytes 8.1 % (0.0-10.0); %Neutrophils 55.1 % (42.0-75.0); Hemoglobin 14.3 g/dL (14.0-18.0); Mean Corpuscular HGB CONC 33.5 g/dL (32.0-36.0); Mean Corpuscular Hemoglobin 31.2 pg (27.0-31.0); Mean Corpuscular Volume 93.1 fL (78.0-98.0); Mean Platelet Volume 8.7 fL (7.4-10.4); Platelet Count 261 thou/uL (130-400); RBC Distribution Width 13.1 % (11.5-14.5); Red Blood Cell (RBC) Count 4.59 mill/uL (4.70-6.10); White Blood Cell (WBC) Count 8.8 thou/uL (4.8-10.8)
[2020-05-23 20:28] LABS: INR-International Normal Ratio 0.9; PTT 26.4 sec (22.9-36.1); Prothrombin Time 12.7 sec (12.0-14.7)
[2020-05-23 20:56] LABS: ALT (SGPT) 21 U/L (8-55); AST (SGOT) 21 U/L (5-34); Albumin 4.1 g/dL (3.4-4.8); Alkaline Phosphatase 88 U/L (40-110); Anion Gap 16 mmol/L (10-20); BUN (Urea Nitrogen) 13 mg/dL (8.4-25.7); Bilirubin, Total 0.5 mg/dL (0.2-1.2); Calc. Creatinine Clearance 0 mL/min (70-130); Calcium 9.4 mg/dL (7.8-10.44); Carbon Dioxide 27 mmol/L (23-31); Chloride 102 mmol/L (98-107); Globulin 3.3 g/dL (2.4-3.5); Glucose 115 mg/dL (80-115); Potassium 3.3 mmol/L (3.5-5.1); Protein, Total 7.4 g/dL (5.8-8.1); Sodium 142 mmol/L (136-145)
[2020-05-23 21:22] LABS: CKMB 2.5 ng/mL (0-6.6)
[2020-05-23] MEDS ORDERED: Enoxaparin Sodium 30 MG/0.3 ML SYRINGE ONE (22:05)
[2020-05-23] MEDS ORDERED: Enoxaparin Sodium 100 MG/ML SYRINGE ONE (22:05)
[2020-05-23 23:13] LABS: SARS-CoV-2 NAA Rapid Test Not Detected (NotDetected)
== END 2020-05-24 00:13 | disposition short-term general hospital (02) ==
LOC: ERS 19:46
DX: I21.3 ST elevation (STEMI) myocardial infarction of unspecified site (principal); I34.0 Nonrheumatic mitral (valve) insufficiency; E11.40 Type 2 diabetes mellitus with diabetic neuropathy, unspecified; E78.5 Hyperlipidemia, unspecified; E78.00 Pure hypercholesterolemia, unspecified; I10 Essential (primary) hypertension; Z86.73 Personal history of transient ischemic attack (TIA), and cerebral infarction without residual deficits; Z86.718 Personal history of other venous thrombosis and embolism; Z79.82 Long term (current) use of aspirin; Z79.84 Long term (current) use of oral hypoglycemic drugs
CPT/HCPCS: 71045; 80053; 82553; 84484; 85025; 85610; 85730; 93005; 96365; 96366; 96372; 96375; J1650; J2270; U0002

== ENCOUNTER 2020-05-26 10:42 | Observation (INO) | payer BC, MEDICARE ==
[2020-05-26 11:44] LABS: #Basophils 0.1 thou/uL (0.0-0.2); #Eosinphils 0.2 thou/uL (0.0-0.7); #Lymphocytes 1.9 thou/uL (1.20-3.40); #Monocytes 0.6 thou/uL (0.11-0.59); #Neutrophils 4.1 thou/uL (1.40-6.50); %Basophils 1.2 % (0.0-1.0); %Eosinophils 3.5 % (0.0-10.0); %Lymphocytes 27.2 % (21.0-51.0); %Monocytes 8.9 % (0.0-10.0); %Neutrophils 59.3 % (42.0-75.0); Hemoglobin 11.6 g/dL (14.0-18.0); Mean Corpuscular HGB CONC 32.2 g/dL (32.0-36.0); Mean Corpuscular Hemoglobin 30.8 pg (27.0-31.0); Mean Corpuscular Volume 95.4 fL (78.0-98.0); Mean Platelet Volume 8.4 fL (7.4-10.4); Platelet Count 221 thou/uL (130-400); RBC Distribution Width 12.9 % (11.5-14.5); Red Blood Cell (RBC) Count 3.78 mill/uL (4.70-6.10); White Blood Cell (WBC) Count 6.9 thou/uL (4.8-10.8)
[2020-05-26 11:55] LABS: INR-International Normal Ratio 1.2; PTT 29.3 sec (22.9-36.1); Prothrombin Time 15.6 sec (12.0-14.7)
[2020-05-26 12:07] LABS: ALT (SGPT) 19 U/L (8-55); AST (SGOT) 22 U/L (5-34); Albumin 3.2 g/dL (3.4-4.8); Alkaline Phosphatase 68 U/L (40-110); Anion Gap 13 mmol/L (10-20); BUN (Urea Nitrogen) 12 mg/dL (8.4-25.7); Bilirubin, Total 0.5 mg/dL (0.2-1.2); Calc. Creatinine Clearance 0 mL/min (70-130); Calcium 8.7 mg/dL (7.8-10.44); Carbon Dioxide 25 mmol/L (23-31); Chloride 105 mmol/L (98-107); Globulin 2.4 g/dL (2.4-3.5); Glucose 179 mg/dL (80-115); Potassium 3.4 mmol/L (3.5-5.1); Protein, Total 5.6 g/dL (5.8-8.1); Sodium 140 mmol/L (136-145)
[2020-05-26 12:36] LABS: CKMB 1.1 ng/mL (0-6.6)
[2020-05-26 16:09] LABS: Troponin I 1.593 ng/mL (< 0.028)
[2020-05-26] MEDS ORDERED: Nitroglycerin 0.4 MG TAB (25 Tab Bottle) SL PRN (16:44)
[2020-05-26 16:49] VITALS: BMI 35.6
[2020-05-26] MEDS ORDERED: Dextrose 5% in Water 1,000 ML IV PRN (18:53)
[2020-05-26] MEDS ORDERED: Dextrose 50% Abboject 50 ML SYRINGE SLOW IVP PRN (18:53)
[2020-05-26] MEDS ORDERED: HumaLOG 300 UNITS/3 ML VIAL SC PRN ×2 (18:53)
[2020-05-26 18:59] LABS: Critical Call Chem Troponin I RESULT DECREASING; Troponin I 1.509 ng/mL (< 0.028)
[2020-05-26] MEDS: Famotidine 20 MG TAB PO SCH (20:44)
[2020-05-27 05:48] LABS: #Basophils 0.1 thou/uL (0.0-0.2); #Eosinphils 0.3 thou/uL (0.0-0.7); #Lymphocytes 2.5 thou/uL (1.20-3.40); #Monocytes 0.7 thou/uL (0.11-0.59); #Neutrophils 4.2 thou/uL (1.40-6.50); %Basophils 1.3 % (0.0-1.0); %Eosinophils 3.5 % (0.0-10.0); %Lymphocytes 31.7 % (21.0-51.0); %Monocytes 9.6 % (0.0-10.0); %Neutrophils 53.9 % (42.0-75.0); Hemoglobin 11.8 g/dL (14.0-18.0); Mean Corpuscular HGB CONC 33.7 g/dL (32.0-36.0); Mean Corpuscular Hemoglobin 31.4 pg (27.0-31.0); Mean Corpuscular Volume 93.1 fL (78.0-98.0); Mean Platelet Volume 8.8 fL (7.4-10.4); Platelet Count 207 thou/uL (130-400); RBC Distribution Width 13.1 % (11.5-14.5); Red Blood Cell (RBC) Count 3.76 mill/uL (4.70-6.10); White Blood Cell (WBC) Count 7.7 thou/uL (4.8-10.8)
[2020-05-27 06:09] LABS: Anion Gap 12 mmol/L (10-20); BUN (Urea Nitrogen) 11 mg/dL (8.4-25.7); Calc. Creatinine Clearance 124 mL/min (70-130); Calcium 8.8 mg/dL (7.8-10.44); Carbon Dioxide 25 mmol/L (23-31); Chloride 108 mmol/L (98-107); Glucose 86 mg/dL (80-115); Sodium 142 mmol/L (136-145)
[2020-05-27] MEDS ORDERED: Potassium Chloride 20 MEQ TAB PO SCH (08:00)
[2020-05-27] MEDS: Multivitamin W/ Minerals 1 TAB PO SCH (08:24)
[2020-05-27] MEDS: Famotidine 20 MG TAB PO SCH ×2 (08:25→22:44)
[2020-05-27] MEDS: Tamsulosin HCl 0.4 MG CAP PO SCH (08:26)
[2020-05-27] MEDS: TICAGRELOR 90 MG TABLET PO SCH ×2 (08:26→22:49)
[2020-05-27] MEDS: buPROPion 75 MG TAB PO SCH ×2 (08:26→22:45)
[2020-05-27] MEDS: Apixaban 5 MG TAB PO SCH ×2 (08:27→22:45)
[2020-05-27] MEDS ORDERED: metFORMIN XR 500 MG TAB PO SCH (09:00)
[2020-05-27] MEDS ORDERED: Chlorthalidone 25 MG TAB PO SCH (09:00)
[2020-05-27] MEDS ORDERED: NIACIN 500 MG PO SCH (09:00)
[2020-05-27] MEDS ORDERED: Non-Formulary Item 1 EACH (Multivit-Min/Folic/Vit K/Lycop [Men's Multivitamin Tablet] 1 E PO SCH (09:00)
[2020-05-27] MEDS ORDERED: Acetaminophen 325 MG TAB PO PRN (15:14)
[2020-05-27] MEDS ORDERED: Gabapentin 300 MG CAP PO SCH (21:00)
[2020-05-27] MEDS ORDERED: Non-Formulary Item 1 EACH (Atorvastatin Calcium [Lipitor] 80 MG Tablet) PO SCH (21:00)
[2020-05-27] MEDS ORDERED: Atorvastatin Calcium 40 MG TAB PO SCH (21:00)
[2020-05-28 05:26] LABS: #Basophils 0.1 thou/uL (0.0-0.2); #Eosinphils 0.3 thou/uL (0.0-0.7); #Lymphocytes 2.2 thou/uL (1.20-3.40); #Monocytes 0.7 thou/uL (0.11-0.59); #Neutrophils 3.6 thou/uL (1.40-6.50); %Eosinophils 4.3 % (0.0-10.0); %Lymphocytes 32.4 % (21.0-51.0); %Monocytes 10.8 % (0.0-10.0); %Neutrophils 51.5 % (42.0-75.0); Mean Corpuscular HGB CONC 33.5 g/dL (32.0-36.0); Mean Corpuscular Hemoglobin 31.3 pg (27.0-31.0); Mean Corpuscular Volume 93.5 fL (78.0-98.0); Mean Platelet Volume 8.8 fL (7.4-10.4); Platelet Count 213 thou/uL (130-400); Red Blood Cell (RBC) Count 3.82 mill/uL (4.70-6.10); White Blood Cell (WBC) Count 6.9 thou/uL (4.8-10.8)
[2020-05-28 05:50] LABS: Anion Gap 13 mmol/L (10-20); BUN (Urea Nitrogen) 9 mg/dL (8.4-25.7); Calc. Creatinine Clearance 120 mL/min (70-130); Calcium 9.1 mg/dL (7.8-10.44); Carbon Dioxide 24 mmol/L (23-31); Chloride 105 mmol/L (98-107); Glucose 109 mg/dL (80-115); Sodium 139 mmol/L (136-145)
[2020-05-28] MEDS ORDERED: Lisinopril 5 MG TAB PO SCH ×2 (09:00)
[2020-05-28] MEDS: buPROPion 75 MG TAB PO SCH (09:19)
[2020-05-28] MEDS: Famotidine 20 MG TAB PO SCH (09:19)
[2020-05-28] MEDS: Apixaban 5 MG TAB PO SCH (09:19)
[2020-05-28] MEDS: Multivitamin W/ Minerals 1 TAB PO SCH (09:21)
[2020-05-28] MEDS: Tamsulosin HCl 0.4 MG CAP PO SCH (09:22)
[2020-05-28] MEDS: TICAGRELOR 90 MG TABLET PO SCH (09:22)
[2020-05-28] MEDS ORDERED: Potassium Chloride 20 MEQ TAB PO SCH (09:30)
[2020-05-28 12:41] VITALS: BP 162/77; TEMP 98.2
== END 2020-05-28 14:00 | disposition home or self-care (01) ==
LOC: ERS 10:42 → 2SW 15:09
PROVIDERS: ADMIT Internal Medicine; ATTEND Hospitalist
DX: I95.1 Orthostatic hypotension (principal); I10 Essential (primary) hypertension; E11.40 Type 2 diabetes mellitus with diabetic neuropathy, unspecified; E66.9 Obesity, unspecified; I25.10 Atherosclerotic heart disease of native coronary artery without angina pectoris; N40.0 Benign prostatic hyperplasia without lower urinary tract symptoms; I22.0 Subsequent ST elevation (STEMI) myocardial infarction of anterior wall; K21.9 Gastro-esophageal reflux disease without esophagitis; Z68.35 Body mass index [BMI] 35.0-35.9, adult; Z79.01 Long term (current) use of anticoagulants; Z79.4 Long term (current) use of insulin; Z79.899 Other long term (current) drug therapy; Z86.718 Personal history of other venous thrombosis and embolism; Z87.891 Personal history of nicotine dependence; Z95.5 Presence of coronary angioplasty implant and graft
CPT/HCPCS: 36415; 36416; 71045; 80048; 80053; 82553; 84484; 85025; 85610; 85730; 93005; 93880; 94760; G0378

== ENCOUNTER 2021-08-24 11:39 | Emergency (ER) | payer BC, MEDICARE ==
[2021-08-24 12:25] LABS: #Basophils 0.1 thou/uL (0.0-0.2); #Eosinphils 0.3 thou/uL (0.0-0.7); #Lymphocytes 2.4 thou/uL (1.20-3.40); #Monocytes 0.9 thou/uL (0.11-0.59); #Neutrophils 7.2 thou/uL (1.40-6.50); %Basophils 0.5 % (0.0-1.0); %Eosinophils 2.5 % (0.0-10.0); %Lymphocytes 22.2 % (21.0-51.0); %Monocytes 8.5 % (0.0-10.0); %Neutrophils 66.3 % (42.0-75.0); Hemoglobin 13.1 g/dL (14.0-18.0); Mean Corpuscular HGB CONC 33.2 g/dL (32.0-36.0); Mean Corpuscular Hemoglobin 32.3 pg (27.0-31.0); Mean Corpuscular Volume 97.1 fL (78.0-98.0); Mean Platelet Volume 8.3 fL (7.4-10.4); Platelet Count 180 thou/uL (130-400); RBC Distribution Width 14.4 % (11.5-14.5); Red Blood Cell (RBC) Count 4.05 mill/uL (4.70-6.10); White Blood Cell (WBC) Count 10.9 thou/uL (4.8-10.8)
[2021-08-24 12:55] LABS: ALT (SGPT) 25 U/L (8-55); AST (SGOT) 19 U/L (5-34); Albumin 3.7 g/dL (3.4-4.8); Alkaline Phosphatase 77 U/L (40-110); Anion Gap 16 mmol/L (10-20); BUN (Urea Nitrogen) 21 mg/dL (8.4-25.7); Bilirubin, Total 0.9 mg/dL (0.2-1.2); Calc. Creatinine Clearance 0 mL/min (70-130); Calcium 9.1 mg/dL (7.8-10.44); Carbon Dioxide 24 mmol/L (23-31); Chloride 104 mmol/L (98-107); Globulin 2.7 g/dL (2.4-3.5); Glucose 167 mg/dL (80-115); Magnesium 1.5 mg/dL (1.6-2.6); Potassium 4.2 mmol/L (3.5-5.1); Protein, Total 6.4 g/dL (5.8-8.1); Sodium 140 mmol/L (136-145)
[2021-08-24] MEDS ORDERED: Magnesium 2 GM/50 ML BAG (IN WATER) ONE (13:10)
[2021-08-24 13:11] LABS: CKMB 1.6 ng/mL (0-6.6)
[2021-08-24 16:52] LABS: Troponin I 0.141 ng/mL (< 0.028)
== END 2021-08-24 17:05 | disposition home or self-care (01) ==
LOC: ERS 11:39
DX: R55 Syncope and collapse (principal); T44.7X5A Adverse effect of beta-adrenoreceptor antagonists, initial encounter; R77.8 Other specified abnormalities of plasma proteins; R00.1 Bradycardia, unspecified; I10 Essential (primary) hypertension; I25.10 Atherosclerotic heart disease of native coronary artery without angina pectoris; I25.2 Old myocardial infarction; E11.40 Type 2 diabetes mellitus with diabetic neuropathy, unspecified; E78.5 Hyperlipidemia, unspecified; E78.00 Pure hypercholesterolemia, unspecified; Z79.4 Long term (current) use of insulin; Z86.73 Personal history of transient ischemic attack (TIA), and cerebral infarction without residual deficits; Z95.5 Presence of coronary angioplasty implant and graft; Z87.891 Personal history of nicotine dependence; Z86.718 Personal history of other venous thrombosis and embolism; Z79.01 Long term (current) use of anticoagulants; Z79.899 Other long term (current) drug therapy
CPT/HCPCS: 36415; 71045; 80053; 82553; 83735; 84484; 85025; 93005; 94760; 96365; J3475